=== PATIENT | female | born 1990 | race Caucasian/White ===

== ENCOUNTER 2017-02-04 23:18 | Emergency (ER) | payer BC ==
[~2017-02-04 23:18] MED LIST: Magnesium Citrate Solution 296 ML Bottle PO ONE
[2017-02-04 23:34] VITALS: BP 124/61
--- NOTE | 2017-02-04 23:35 | EDM.PDOC ---
{null, ED HPI GENERAL MEDICAL PROBLEM - General Chief Complaint: Abdominal Pain Stated Complaint: ABD PAINS, [id number] Time Seen by Provider: 02/04/17 23:33 Source of Information: Reports: Patient History Limitations: Reports: No Limitations - History of Present Illness INITIAL COMMENTS - FREE TEXT/NARRATIVE: onset abd pain tonight, nausea no V/D. was eating liquorice prior. don't know last BM. Left Lower Abdominal Pain Score (Numeric/FACES): 8 - Related Data Allergies Allergy/AdvReac Type Severity Reaction Status Date / Time amoxicillin [Amoxicillin] Allergy Severe Difficulty Verified 09/17/16 19:03 Breathing azithromycin [From Zithromax] Allergy Intermediate Vomiting Verified 09/17/16 19 :03 Home Meds: Home Meds Ibuprofen [Motrin] 600 mg PO ASDIRECTED 10/18/14 [History] Sertraline [Zoloft] 100 mg PO DAILY 10/18/14 [History] Past Medical History - Past Health History Medical/Surgical History: Denies Medical/Surgical History HEENT History: Reports: Otitis Media Respiratory History: Reports: Asthma Genitourinary History: Reports: UTI, Recurrent Psychiatric History: Reports: Depression - Infectious Disease History Infectious Disease History: Reports: Chicken Pox - Past Surgical History HEENT Surgical History: Reports: Adenoidectomy, Myringotomy w Tube(s), Tonsillectomy Respiratory Surgical History: Reports: Other (See Below) Social & Family History - Family History Family Medical History: Noncontributory - Tobacco Use Smoking Status *Q: Never Smoker Second Hand Smoke Exposure: No - Caffeine Use Caffeine Use: Reports: Other Other Caffeine Use: orange juice - Alcohol Use Days Per Week of Alcohol Use: 0 - Recreational Drug Use Recreational Drug Use: No ED ROS GENERAL - Review of Systems Review Of Systems: ROS reveals no pertinent complaints other than HPI. ED EXAM, GI/ABD - Physical Exam Exam: See Below Exam Limited By: No Limitations General Appearance: Alert, WD/WN, Mild Distress, Other (discomfort) Ears: Hearing Grossly Normal Throat/Mouth: Normal Voice, No Airway Compromise Head: Atraumatic Neck: Non-Tender, Full Range of Motion Respiratory/Chest: No Respiratory Distress Cardiovascular: Regular Rate, Rhythm GI/Abdominal: Soft, Hyperactive Bowel Sounds, Tenderness, Other (periumb). No: Distention, Guarding, Rebound, Rigidity Neurological: Alert, Normal Cognition, Normal Gait, No Motor/Sensory Deficits Psychiatric: Normal Affect, Normal Mood Skin Exam: Warm, Dry Lymphatic: No Adenopathy Course - Vital Signs Last Recorded V/S: Last Vital Signs Temp 36.6 C 02/04/17 23:20 Pulse 55 L 02/04/17 23:20 Resp 16 02/04/17 23:20 BP 124/61 02/04/17 23:20 Pulse Ox 100 02/04/17 23:20 - Orders/Labs/Meds Labs: Laboratory Tests 02/04/17 02/04/17 02/04/17 Range/Units 23:32 23:32 23:40 WBC 8.7 (5.0-10.0) 10^3/uL RBC 4.57 (4.2-5.4) 10^6/uL Hgb 13.8 (12.0-16.0) g/dL Hct 39.6 (37.0-47.0) % MCV 86.7 (80-100) fL MCH 30.2 (27.0-34.0) pg MCHC 34.8 (33.0-35.0) g/dL Plt Count 296 (150-450) 10^3/uL Neut % (Auto) 46.9 (42.2-75.2) % Lymph % (Auto) 42.6 (20.5-50.1) % [place] % (Auto) 9.2 H (2-8) % Eos % (Auto) 1.2 (1.0-3.0) % Baso % (Auto) 0.1 (0.0-1.0) % Sodium (135-145) mmol/L Potassium (3.6-5.0) mmol/L Chloride (101-111) mmol/L Carbon Dioxide (21.0-31.0) mmol/L Anion Gap BUN (7-18) mg/dL Creatinine (0.6-1.3) mg/dL Est Cr Clr Drug Dosing mL/min Estimated GFR (MDRD) BUN/Creatinine Ratio Glucose (74-105) mg/dL Calcium (8.4-10.2) mg/dl Total Bilirubin (0.2-1.0) mg/dL AST (10-42) IU/L ALT (10-60) IU/L Alkaline Phosphatase (42-121) IU/L Total Protein (6.7-8.2) g/dl Albumin (3.2-5.5) g/dl Globulin Albumin/Globulin Ratio Urine Color Yellow (YELLOW) Urine Appearance Slightly cloudy (CLEAR) Urine pH 5.5 (5.0-9.0) Ur Specific [place] 1.020 (1.005-1.030) Urine Protein Negative (NEGATIVE) Urine Glucose (UA) Negative (NEGATIVE) Urine Ketones Negative (NEGATIVE) Urine Occult Blood Negative (NEGATIVE) Urine Nitrite Negative (NEGATIVE) Urine Bilirubin Negative (NEGATIVE) Urine Urobilinogen 0.2 (0.2-1.0) mg/dL Ur Leukocyte Esterase Small H (NEGATIVE) Urine RBC 0-5 /HPF Urine WBC 5-10 H (0-5/HPF) /HPF Ur Epithelial Cells Many H /HPF Urine Bacteria Few (0-FEW/HPF) /HPF Urine HCG, Qual Negative 02/04/17 Range/Units 23:40 WBC (5.0-10.0) 10^3/uL RBC (4.2-5.4) 10^6/uL Hgb (12.0-16.0) g/dL Hct (37.0-47.0) % MCV (80-100) fL MCH (27.0-34.0) pg MCHC (33.0-35.0) g/dL Plt Count (150-450) 10^3/uL Neut % (Auto) (42.2-75.2) % Lymph % (Auto) (20.5-50.1) % [facility] % (Auto) (2-8) % Eos % (Auto) (1.0-3.0) % Baso % (Auto) (0.0-1.0) % Sodium 139 (135-145) mmol/L Potassium 3.6 (3.6-5.0) mmol/L Chloride 105 (101-111) mmol/L Carbon Dioxide 27.0 (21.0-31.0) mmol/L Anion Gap 10.6 BUN 13 (7-18) mg/dL Creatinine 0.7 (0.6-1.3) mg/dL Est Cr Clr Drug Dosing 97.17 mL/min Estimated GFR (MDRD) > 60 BUN/Creatinine Ratio 18.57 Glucose 112 H (74-105) mg/dL Calcium 9.3 (8.4-10.2) mg/dl Total Bilirubin 0.5 (0.2-1.0) mg/dL AST 18 (10-42) IU/L ALT 21 (10-60) IU/L Alkaline Phosphatase 52 (42-121) IU/L Total Protein 6.8 (6.7-8.2) g/dl Albumin 4.6 (3.2-5.5) g/dl Globulin 2.2 Albumin/Globulin Ratio 2.09 Urine Color (YELLOW) Urine Appearance (CLEAR) Urine pH (5.0-9.0) Ur Specific [place] (1.005-1.030) Urine Protein (NEGATIVE) Urine Glucose (UA) (NEGATIVE) Urine Ketones (NEGATIVE) Urine Occult Blood (NEGATIVE) Urine Nitrite (NEGATIVE) Urine Bilirubin (NEGATIVE) Urine Urobilinogen (0.2-1.0) mg/dL Ur Leukocyte Esterase (NEGATIVE) Urine RBC /HPF Urine WBC (0-5/HPF) /HPF Ur Epithelial Cells /HPF Urine Bacteria (0-FEW/HPF) /HPF Urine HCG, Qual Meds: Medications Discontinued Medications Generic Name Dose Route Start Last Admin Trade Name Michaelq PRN Reason Stop Dose Admin Dicyclomine HCl 20 mg 02/05/17 00:27 Bentyl IM 02/05/17 00:28 ONETIME ONE - Re-Assessments/Exams Free Text/Narrative Re-Assessment/Exam: 02/05/17 00:28 x-rays discussed with Pt. Departure - Departure Time of Disposition: 00:29 Disposition: Home, Self-Care 01 Condition: good Clinical Impression: Colicky periumbilical abdominal pain - Discharge Information Instructions: Abdominal Pain, Adult, [id number] Forms: ED Department Discharge Additional Instructions: 1) avoid solid foods next 24 hours 2) have jello, baby foods 3) follow up at clinic or recheck as needed rx togo: [facility] }
[2017-02-05 00:03] LABS: CHLORIDE,CL 105 mmol/L (101-111); SODIUM,NA 139 mmol/L (135-145)
[2017-02-05] MEDS ORDERED: Dicyclomine 20 MG/2 ML SDV IM ONE (00:27)
[2017-02-05] MEDS ORDERED: Magnesium Citrate Solution 296 ML Bottle ONE (00:33)
== END 2017-02-05 00:38 | disposition home or self-care (01) ==
LOC: DL.ED 23:18
DX: R10.33 Periumbilical pain (principal); J45.909 Unspecified asthma, uncomplicated; F32.9 Major depressive disorder, single episode, unspecified; Z88.1 Allergy status to other antibiotic agents; Z87.440 Personal history of urinary (tract) infections; Z79.899 Other long term (current) drug therapy; Z98.890 Other specified postprocedural states; Z96.22 Myringotomy tube(s) status
CPT/HCPCS: 36415; 74000; 80053; 81001; 81025; 85025; 96372; 99284; A9270; J0500

== ENCOUNTER 2017-05-08 20:48 | Emergency (ER) | payer BC ==
[2017-05-08 21:18] VITALS: BP 127/82
--- NOTE | 2017-05-08 22:21 | EDM.PDOC ---
ED HPI GENERAL MEDICAL PROBLEM - General Chief Complaint: Bite:Animal, Insect Stated Complaint: STUNG BY HORNET Time Seen by Provider: 05/08/17 22:10 Source of Information: Reports: Patient History Limitations: Reports: No Limitations - History of Present Illness INITIAL COMMENTS - FREE TEXT/NARRATIVE: pain and ingling to tip of right finger since stung by hornet on Sunday. Onset: Other (2 days ago) Location: Reports: Upper Extremity, Right Quality: Reports: Throbbing Associated Symptoms: Reports: No Other Symptoms. Denies: Cough, Fever/Chills, Nausea/Vomiting, Shortness of Breath, Weakness Right 3-Middle finger Pain Score (Numeric/FACES): 7 - Related Data Allergies Allergy/AdvReac Type Severity Reaction Status Date / Time amoxicillin [Amoxicillin] Allergy Severe Difficulty Verified 05/08/17 21:18 Breathing azithromycin [From Zithromax] Allergy Intermediate Vomiting Verified 05/08/17 21 :18 Home Meds: Home Meds Ibuprofen [Motrin] 600 mg PO ASDIRECTED 10/18/14 [History] Sertraline [Zoloft] 100 mg PO DAILY 10/18/14 [History] Past Medical History - Past Health History Medical/Surgical History: Denies Medical/Surgical History HEENT History: Reports: Otitis Media Respiratory History: Reports: Asthma Genitourinary History: Reports: UTI, Recurrent Psychiatric History: Reports: Depression - Infectious Disease History Infectious Disease History: Reports: Chicken Pox - Past Surgical History HEENT Surgical History: Reports: Adenoidectomy, Myringotomy w Tube(s), Tonsillectomy Respiratory Surgical History: Reports: Other (See Below) Other Musculoskeletal Surgeries/Procedures:: 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 Social & Family History - Family History Family Medical History: Noncontributory - Tobacco Use Smoking Status *Q: Never Smoker Second Hand Smoke Exposure: No - Caffeine Use Caffeine Use: Reports: Soda Other Caffeine Use: orange juice - Alcohol Use Days Per Week of Alcohol Use: 0 - Recreational Drug Use Recreational Drug Use: No ED ROS GENERAL - Review of Systems Review Of Systems: ROS reveals no pertinent complaints other than HPI. ED EXAM, ANIMAL BITE - Physical Exam Exam: See Below Exam Limited By: No Limitations General Appearance: Alert Ears: Normal External Exam Nose: Normal Inspection Throat/Mouth: Normal Inspection, Normal Lips Head: Atraumatic, Normocephalic Respiratory/Chest: No Respiratory Distress Cardiovascular: Normal Peripheral Pulses, Regular Rate, Rhythm Extremities: Normal Inspection, Normal Range of Motion Neurological: Alert, Oriented Psychiatric: Normal Affect Skin Exam: Other (mild erythema to tip of right 3rd finger, punture site without stinger visible medial edge. good capillary refill. ). No: Normal Color Course - Vital Signs Last Recorded V/S: Last Vital Signs Temp 98.2 F 05/08/17 21:08 Pulse 73 05/08/17 21:08 Resp 16 05/08/17 21:08 BP 127/82 05/08/17 21:08 Pulse Ox 100 05/08/17 21:08 Departure - Departure Time of Disposition: 22:17 Disposition: Home, Self-Care 01 Condition: Good Clinical Impression: Sting, hornet Qualifiers: Encounter type: initial encounter Injury intent: accidental or unintentional Qualified Code(s): T63.451A - Toxic effect of venom of hornets, accidental ( unintentional), initial encounter - Discharge Information Instructions: Insect Bite, [id number] Forms: ED Department Discharge Additional Instructions: tylenol every 4-6 hours as needed for discomfort warm soack with antibacterial soap to finger 4 times daily for 15 minutes follow up if not improving
== END 2017-05-08 22:21 | disposition home or self-care (01) ==
LOC: DL.ED 20:48
DX: T63.451A Toxic effect of venom of hornets, accidental (unintentional), initial encounter (principal); J45.909 Unspecified asthma, uncomplicated; F32.9 Major depressive disorder, single episode, unspecified; Z96.22 Myringotomy tube(s) status; Z88.1 Allergy status to other antibiotic agents
CPT/HCPCS: 99281

== ENCOUNTER 2017-05-21 20:49 | Emergency (ER) | payer BC ==
[2017-05-21 21:20] VITALS: BP 121/69
--- NOTE | 2017-05-21 21:50 | EDM.PDOC ---
ED HPI GENERAL MEDICAL PROBLEM - General Chief Complaint: Abdominal Pain Stated Complaint: 6 WEEKS , CRAMPING Time Seen by Provider: 05/21/17 20:55 Source of Information: Reports: Patient History Limitations: Reports: No Limitations - History of Present Illness INITIAL COMMENTS - FREE TEXT/NARRATIVE: Reports recent UTI and treated with Macrobid. Continued symptoms of pain with urination, cramping. Reports 6 weeks . No spotting or discharge. Cramping since onset of urinary symptoms and was seen in clinic. Has not had OB visit yet. . No fevers or chills. Duration: Day(s): Lower Abdomen Pain Score (Numeric/FACES): 8 - Related Data Allergies Allergy/AdvReac Type Severity Reaction Status Date / Time amoxicillin [Amoxicillin] Allergy Severe Difficulty Verified 05/21/17 21:02 Breathing azithromycin [From Zithromax] Allergy Intermediate Vomiting Verified 05/21/17 21 :02 Penicillins Allergy Vomiting Verified 05/21/17 21:03 Home Meds: Home Meds Cetirizine HCl [Zyrtec] 10 mg PO DAILY 05/21/17 [History] Past Medical History - Past Health History Medical/Surgical History: Denies Medical/Surgical History HEENT History: Reports: Otitis Media Cardiovascular History: Reports: None Respiratory History: Reports: Asthma Gastrointestinal History: Reports: None Genitourinary History: Reports: UTI, Recurrent 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: Musculoskeletal History: Reports: Fracture Neurological History: Reports: None Psychiatric History: Reports: Depression Endocrine/Metabolic History: Reports: None Hematologic History: Reports: None Immunologic History: Reports: None Oncologic (Cancer) History: Reports: None Dermatologic History: Reports: None - Infectious Disease History Infectious Disease History: Reports: Chicken Pox - Past Surgical History HEENT Surgical History: Reports: Adenoidectomy, Myringotomy w Tube(s), Tonsillectomy Cardiovascular Surgical History: Reports: None Respiratory Surgical History: Reports: None GI Surgical History: Reports: None Female Surgical History: Reports: None Endocrine Surgical History: Reports: None Neurological Surgical History: Reports: None Musculoskeletal Surgical History: Reports: Other (See Below) Other Musculoskeletal Surgeries/Procedures:: 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 Dermatological Surgical History: Reports: None Social & Family History - Family History Family Medical History: Noncontributory - Tobacco Use Smoking Status *Q: Never Smoker Second Hand Smoke Exposure: No - Caffeine Use Caffeine Use: Reports: Soda Other Caffeine Use: orange juice - Alcohol Use Days Per Week of Alcohol Use: 0 - Recreational Drug Use Recreational Drug Use: No ED ROS GENERAL - Review of Systems Review Of Systems: ROS reveals no pertinent complaints other than HPI. ED EXAM, RENAL/ - Physical Exam Exam: See Below Exam Limited By: No Limitations General Appearance: Alert, No Apparent Distress Eye Exam: Bilateral Eye: EOMI Ears: Normal External Exam Nose: Normal Inspection Throat/Mouth: Normal Inspection Head: Atraumatic, Normocephalic Neck: Normal Inspection Respiratory/Chest: No Respiratory Distress, Lungs Clear, Normal Breath Sounds Cardiovascular: Normal Peripheral Pulses, Regular Rate, Rhythm GI/Abdominal: Normal Bowel Sounds, Soft, Tender (mild suprpubic) (Female) Exam: Deferred Back Exam: Full Range of Motion Extremities: Normal Inspection Neurological: Alert, Oriented, Normal Cognition Psychiatric: Normal Affect, Normal Mood Skin Exam: Warm, Dry, Intact, Normal Color Course - Vital Signs Last Recorded V/S: Last Vital Signs Temp 97.4 F 05/21/17 20:50 Pulse 78 05/21/17 20:50 Resp 26 H 05/21/17 20:50 BP 121/69 05/21/17 20:50 Pulse Ox 100 05/21/17 20:50 - Orders/Labs/Meds Orders: Active Orders 24 hr Category Date Time Status CHLAMYDIA TRACHOMATIS/GC AMPLF DAILY Lab 05/21/17 20:53 Received Labs: Laboratory Tests 05/21/17 Range/Units 20:53 Urine Color Yellow (YELLOW) Urine Appearance Slightly cloudy (CLEAR) Urine pH 6.0 (5.0-9.0) Ur Specific [place] 1.015 (1.005-1.030) Urine Protein Negative (NEGATIVE) Urine Glucose (UA) Negative (NEGATIVE) Urine Ketones Negative (NEGATIVE) Urine Occult Blood Negative (NEGATIVE) Urine Nitrite Negative (NEGATIVE) Urine Bilirubin Negative (NEGATIVE) Urine Urobilinogen 0.2 (0.2-1.0) mg/dL Ur Leukocyte Esterase Trace H (NEGATIVE) Urine RBC 0-5 /HPF Urine WBC 5-10 H (0-5/HPF) /HPF Ur Epithelial Cells Moderate H /HPF Urine Bacteria Few (0-FEW/HPF) /HPF Meds: Medications Discontinued Medications Generic Name Dose Route Start Last Admin Trade Name Rafael PRN Reason Stop Dose Admin Cephalexin 500 mg 05/21/17 21:51 05/21/17 22:00 Keflex PO 05/21/17 21:52 500 mg ONETIME ONE Administration Departure - Departure Time of Disposition: 21:43 Disposition: Home, Self-Care 01 Condition: Good Clinical Impression: UTI (urinary tract infection) during Qualifiers: Trimester: first trimester Qualified Code(s): O23.41 - Unspecified infection of urinary tract in , first trimester - Discharge Information Instructions: Urinary Tract Infection, Adult Referrals: Orion Ceja NP [Primary Care Provider] - Forms: ED Department Discharge Additional Instructions: keflex 500mg one twice daily for one week follow up with [facility] this week Urine culture pending light activity increase fluids - My Orders Last 24 Hours: My Active Orders 05/21/17 20:53 CHLAMYDIA TRACHOMATIS/GC AMPLF DAILY - Assessment/Plan Last 24 Hours: My Active Orders 05/21/17 20:53 CHLAMYDIA TRACHOMATIS/GC AMPLF DAILY
[2017-05-21] MEDS ORDERED: Cephalexin 500 MG Cap PO ONE (21:51)
== END 2017-05-21 22:05 | disposition home or self-care (01) ==
LOC: DL.ED 20:49
DX: O23.41 Unspecified infection of urinary tract in pregnancy, first trimester (principal); O99.511 Diseases of the respiratory system complicating pregnancy, first trimester; J45.909 Unspecified asthma, uncomplicated; O99.341 Other mental disorders complicating pregnancy, first trimester; F32.9 Major depressive disorder, single episode, unspecified; Z96.22 Myringotomy tube(s) status; Z98.890 Other specified postprocedural states; Z79.899 Other long term (current) drug therapy; Z88.0 Allergy status to penicillin; Z88.1 Allergy status to other antibiotic agents; Z3A.01 Less than 8 weeks gestation of pregnancy
CPT/HCPCS: 81001; 87491; 87591; 99284; A9270

== ENCOUNTER 2017-06-16 09:33 | Emergency (ER) | payer BC ==
[2017-06-16 09:52] VITALS: BP 121/71
--- NOTE | 2017-06-16 10:16 | EDM.PDOC ---
ED HPI GENERAL MEDICAL PROBLEM - General Chief Complaint: Genitourinary Problem Stated Complaint: UTI 10WEEKS [id number] Time Seen by Provider: 06/16/17 10:10 Source of Information: Reports: Patient History Limitations: Reports: No Limitations - History of Present Illness INITIAL COMMENTS - FREE TEXT/NARRATIVE: Patient comes emergency department today with complaints of painful urination and urinary frequency. She just finished a seven-day course of Keflex 1 tablet every 6 hours for 7 days. Previous to that she had been on Keflex and also Macrobid. She denies any fever or chills. She denies any chest pain shortness of breath. She denies any abdominal pain or cramping over the when she urinates. She denies any flank pain. She denies any nausea or vomiting. She is currently 10 weeks just station and is to see her OB doctor on Sunday. She did finish her entire course of Keflex 4 times a day for 7 days. Left Lower Abdomen Pain Score (Numeric/FACES): 7 - Related Data Allergies Allergy/AdvReac Type Severity Reaction Status Date / Time amoxicillin [Amoxicillin] Allergy Severe Difficulty Verified 05/21/17 21:02 Breathing azithromycin [From Zithromax] Allergy Intermediate Vomiting Verified 05/21/17 21 :02 Penicillins Allergy Vomiting Verified 05/21/17 21:03 Home Meds: Home Meds Cetirizine HCl [Zyrtec] 10 mg PO ASDIRECTED 05/21/17 [History] Doxylamine Succinate [Unisom Sleep Aid] 25 mg PO BEDTIME PRN 06/16/17 [History] Vit37/Iron/Folic Acid [[place]] 1 tab PO DAILY 06/16/17 [History] Vit B 6 1 tab PO DAILY 06/16/17 [History] Past Medical History - Past Health History Medical/Surgical History: Denies Medical/Surgical History HEENT History: Reports: Otitis Media Cardiovascular History: Reports: None Respiratory History: Reports: Asthma Gastrointestinal History: Reports: None Genitourinary History: Reports: UTI, Recurrent 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: Musculoskeletal History: Reports: Fracture Neurological History: Reports: None Psychiatric History: Reports: Depression Endocrine/Metabolic History: Reports: None Hematologic History: Reports: None Immunologic History: Reports: None Oncologic (Cancer) History: Reports: None Dermatologic History: Reports: None - Infectious Disease History Infectious Disease History: Reports: Chicken Pox - Past Surgical History Head Surgeries/Procedures: Reports: None HEENT Surgical History: Reports: Adenoidectomy, Myringotomy w Tube(s), Tonsillectomy Cardiovascular Surgical History: Reports: None Respiratory Surgical History: Reports: None GI Surgical History: Reports: None Female Surgical History: Reports: None Endocrine Surgical History: Reports: None Neurological Surgical History: Reports: None Musculoskeletal Surgical History: Reports: Other (See Below) Other Musculoskeletal Surgeries/Procedures:: 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 Dermatological Surgical History: Reports: None Social & Family History - Family History Family Medical History: Noncontributory - Tobacco Use Smoking Status *Q: Never Smoker Second Hand Smoke Exposure: No - Caffeine Use Caffeine Use: Reports: Soda Other Caffeine Use: orange juice - Alcohol Use Days Per Week of Alcohol Use: 0 - Recreational Drug Use Recreational Drug Use: No ED ROS GENERAL - Review of Systems Review Of Systems: ROS reveals no pertinent complaints other than HPI. ED EXAM, RENAL/ - Physical Exam Exam: See Below Exam Limited By: No Limitations General Appearance: Alert, WD/WN, No Apparent Distress Head: Atraumatic, Normocephalic Neck: Normal Inspection, Supple, Non-Tender Respiratory/Chest: No Respiratory Distress, Lungs Clear, Normal Breath Sounds, No Accessory Muscle Use Cardiovascular: Normal Peripheral Pulses, Regular Rate, Rhythm, No Edema GI/Abdominal: Normal Bowel Sounds, Soft, Non-Tender, No Organomegaly, No Distention (Female) Exam: Deferred, Vaginal Discharge (Bob within fishy smelling discharge.), Other (Exam done with Ana Rosa RN present.). No: Adnexal Mass, Adnexal Tenderness, Cervical Dilatation, Cervical Discharge, Cervical Lesions, Cervix Motion Tenderness, Uterine Tenderness, Vaginal Bleeding, Vaginal Lesions , Vaginal Tears Rectal (Female) Exam: Deferred Back Exam: Normal Inspection, Full Range of Motion. No: CVA Tenderness (L), CVA Tenderness (R) Extremities: Normal Inspection, Normal Range of Motion, Non-Tender, No Pedal Edema, Normal Capillary Refill Neurological: Alert, Oriented, CN II-XII Intact Psychiatric: Normal Affect Skin Exam: Warm, Dry, Intact, Normal Color Lymphatic: No Adenopathy Course - Vital Signs Last Recorded V/S: Last Vital Signs Temp 36.3 C 06/16/17 09:47 Pulse 71 06/16/17 09:47 Resp 16 06/16/17 09:47 BP 121/71 06/16/17 09:47 Pulse Ox 100 06/16/17 09:47 - Orders/Labs/Meds Labs: Laboratory Tests 06/16/17 Range/Units 09:45 Urine Color Yellow (YELLOW) Urine Appearance Cloudy (CLEAR) Urine pH 7.0 (5.0-9.0) Ur Specific [place] 1.020 (1.005-1.030) Urine Protein Negative (NEGATIVE) Urine Glucose (UA) Negative (NEGATIVE) Urine Ketones Negative (NEGATIVE) Urine Occult Blood Negative (NEGATIVE) Urine Nitrite Negative (NEGATIVE) Urine Bilirubin Negative (NEGATIVE) Urine Urobilinogen 1.0 (0.2-1.0) mg/dL Ur Leukocyte Esterase Trace H (NEGATIVE) Urine RBC 0-5 /HPF Urine WBC 0-5 (0-5/HPF) /HPF Ur Epithelial Cells Moderate H /HPF Urine Bacteria Few (0-FEW/HPF) /HPF Urine Mucus Few H /LPF Microbiology 06/16/17 11:29 Wet Prep - Final Vagina Microbiology 06/16/17 11:29 Vagina Wet Prep - Final Many clue cells. No yeast or trichomoniasis. - Re-Assessments/Exams Free Text/Narrative Re-Assessment/Exam: 06/16/17 11:11 Review of her urine which is rather unremarkable today with a trace amount of leukocyte esterase. Normal amount of RBCs and WBCs. We were able to access her [facility] chart which had a negative urine culture from the last visit when she was started on Keflex. She does also have a negative chlamydia and gonorrhea screen previously in the emergency department here. I wonder if she does not have some type of vaginal infection to include G strep bacterial vaginosis. She consented to a pelvic exam with Ana Rosa RN in the room. 06/16/17 12:06 Wet prep positive for clue cells. We'll treat with clindamycin she does have a follow-up with OB on Sunday. She was comfortable with this plan and her questions are answered. Departure - Departure Time of Disposition: 11:59 Disposition: Home, Self-Care 01 Clinical Impression: Bacterial vaginal infection - Discharge Information Instructions: Bacterial Vaginosis, [id number] Forms: ED Department Discharge Additional Instructions: Tylenol as needed for pain. Clindamycin 300mg 1 tab twice a day for 7 days. Increase oral fluids over the next couple of days. Follow-up with your OB provider on Sunday as planned. Return the emergency department if new or worsening symptoms. - Assessment/Plan Assessment:: Bacterial vaginosis in a patient. Plan: Tylenol as needed for pain. Clindamycin 300mg 1 tab twice a day for 7 days. Increase oral fluids over the next couple of days. Follow-up with your OB provider on Sunday as planned. Return the emergency department if new or worsening symptoms.
== END 2017-06-16 12:08 | disposition home or self-care (01) ==
LOC: DL.ED 09:33
DX: O23.591 Infection of other part of genital tract in pregnancy, first trimester (principal); N76.0 Acute vaginitis; B96.89 Other specified bacterial agents as the cause of diseases classified elsewhere; O99.511 Diseases of the respiratory system complicating pregnancy, first trimester; J45.909 Unspecified asthma, uncomplicated; O99.341 Other mental disorders complicating pregnancy, first trimester; F32.9 Major depressive disorder, single episode, unspecified; Z96.22 Myringotomy tube(s) status; Z98.890 Other specified postprocedural states; Z88.0 Allergy status to penicillin; Z88.1 Allergy status to other antibiotic agents; Z3A.10 10 weeks gestation of pregnancy
CPT/HCPCS: 81001; 87210; 99284

== ENCOUNTER 2017-11-23 22:21 | Observation (INO) | payer BC, MEDICAID ==
[2017-11-23] MEDS ORDERED: Acetaminophen 500 MG Tab PO ONE (22:55)
[2017-11-24] MEDS ORDERED: Magnesium Sulfate/Water 4 GM in Premix Bag 1 BAG IV ONE (01:39)
[2017-11-24] MEDS ORDERED: Calcium Gluconate 10% 1 GM/10 ML SDV IV PRN (01:39)
[2017-11-24] MEDS ORDERED: Lactated Ringers 1,000 ML IV SCH (01:45)
[2017-11-24] MEDS ORDERED: Magnesium Sulfate/Water 20 GM/500 ML BAG IV SCH (01:45)
--- NOTE | 2017-11-24 02:15 | PCM.LDHP ---
L&D History of Present Illness - General Date of Service: 11/24/17 (33 2/7 week intrauterine ) Admit Problem/Dx: 27 y.o Gravia 1 Para 0 female who reports to [facility] labor and delivery at 33 2/7 weeks gestation with headache and history of preeclampsia without severe features being monitored at home until headache 7/10 in pain scale started and has been bothering her all day long. No history of headaches in the past. Blood pressures noted to be in 140-170's/90's -100's. Reflexes brisk with some clonus right foot. Her 24 hour urine done on 11/22/2017 was 891 mg/24hr. No other issues in the . Source of Information: Patient History Limitations: Reports: No Limitations - History of Present Illness Location, : Reports: Other (Headache) Severity: Moderate Pain Score: 7 Improves with: Reports: None Worsens with: Reports: Movement - Related Data Allergies/Adverse Reactions: Allergies Allergy/AdvReac Type Severity Reaction Status Date / Time amoxicillin [Amoxicillin] Allergy Severe Difficulty Verified 11/23/17 22:45 Breathing azithromycin [From Zithromax] Allergy Intermediate Vomiting Verified 11/23/17 22 :45 Penicillins Allergy Vomiting Verified 11/23/17 22:45 Home Medications: Home Meds Vit37/Iron/Folic Acid [Prenata] 1 tab PO DAILY 06/16/17 [History] Past Medical History - Past Health History Medical/Surgical History: Denies Medical/Surgical History HEENT History: Reports: Otitis Media Cardiovascular History: Reports: Other (See Below) Other Cardiovascular History: preeclampsia Respiratory History: Reports: Asthma Gastrointestinal History: Reports: None Genitourinary History: Reports: UTI, Recurrent 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: Reports: , Other (See Below) Other OB/BYN History: BV Musculoskeletal History: Reports: Fracture Neurological History: Reports: None Psychiatric History: Reports: Depression Endocrine/Metabolic History: Reports: None Hematologic History: Reports: None Immunologic History: Reports: None Oncologic (Cancer) History: Reports: None Dermatologic History: Reports: None - Infectious Disease History Infectious Disease History: Reports: None - Past Surgical History Head Surgeries/Procedures: Reports: None HEENT Surgical History: Reports: Adenoidectomy, Myringotomy w Tube(s), Tonsillectomy Cardiovascular Surgical History: Reports: None Respiratory Surgical History: Reports: None GI Surgical History: Reports: None Female Surgical History: Reports: None Endocrine Surgical History: Reports: None Neurological Surgical History: Reports: None Musculoskeletal Surgical History: Reports: Other (See Below) Other Musculoskeletal Surgeries/Procedures:: 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 Dermatological Surgical History: Reports: None Social & Family History - Family History Family Medical History: Noncontributory - Tobacco Use Smoking Status *Q: Never Smoker Second Hand Smoke Exposure: No - Caffeine Use Caffeine Use: Reports: Soda Other Caffeine Use: orange juice - Alcohol Use Days Per Week of Alcohol Use: 0 - Recreational Drug Use Recreational Drug Use: No H&P Review of Systems - Review of Systems: Review Of Systems: See Below General: Reports: Malaise HEENT: Reports: Headaches Pulmonary: Reports: No Symptoms Cardiovascular: Reports: No Symptoms Gastrointestinal: Reports: No Symptoms Genitourinary: Reports: No Symptoms Musculoskeletal: Reports: No Symptoms Skin: Reports: Other (Edema in hands and feet/legs) Psychiatric: Reports: No Symptoms Neurological: Reports: Headache Hematologic/Lymphatic: Reports: No Symptoms Immunologic: Reports: No Symptoms L&D Exam - Exam Exam: See Below - Vital Signs Vital Signs: Last Vital Signs Temp 99 F 11/23/17 23:18 Pulse Resp BP Pulse Ox Weight: 193 lb - OB Specific Fundal Height In cm: 33 Movement: Active Heart Tones: Present Heart Tones per Min: 140 Heart Rate (FHR) Variability: Moderate (6-25 bmp) Presentation: Vertex - Exam Quality Assessment: Urinary Catheter General: Alert, Oriented, Cooperative HEENT: Conjunctiva Clear, EOMI, Mucosa Moist & [place], Pupils Equal, Pupils Reactive Neck: Supple, Full Range of Motion Lungs: Clear to Auscultation, Normal Respiratory Effort Cardiovascular: Regular Rate, Regular Rhythm GI/Abdominal Exam: Normal Bowel Sounds, Soft, Non-Tender, No Organomegaly Rectal Exam: Deferred Genitourinary: Deferred Back Exam: Normal Inspection, Full Range of Motion Extremities: Normal Inspection, Normal Range of Motion, Non-Tender, Normal Capillary Refill, Pedal Edema (2+ edema) Skin: Warm, Dry, Intact Neurological: Reflexes Equal Bilateral, Hyperreflexia DTR: 3+: Bicep (L), Bicep (R), Tricep (L), Tricep (R), Patella (L), Patella (R) , Achilles (L), Achilles (R) (2 beats of Clonus) Psychiatric: Alert, Normal Affect, Normal Mood - Patient Data Lab Results Last 24 hrs: 11/21/2017 WBC- 12.2 HGB- 12.5 HCT- 35.9 PLT- 217 Na+- 139 K+- 3.6 BUN- 11 Cr- 0.7 URIC ACID- 5.7 LDH- 176 AST- 26 ALT- 16 11/22/2017 24 Urine protein- 891 mg/24hr - Problem List (1) Hypertension affecting in third trimester SNOMED Code(s): 463767851 ICD Code: O16.3 - UNSPECIFIED MATERNAL HYPERTENSION, THIRD TRIMESTER Status : Acute Current Visit: Yes Problem List Initiated/Reviewed/Updated: Yes Orders Last 24hrs: Active Orders 24 hr Category Date Time Status Patient Status [ADT] Routine ADT 11/24/17 01:39 Ordered Bedrest [RC] ASDIRECTED Care 11/24/17 01:50 Ordered Equipment to Bedside [RC] PRN Care 11/24/17 01:42 Ordered Duran Catheter Insertion [Insert Urinary Catheter] [OM. Care 11/24/17 02:00 Ordered PC] Q24H Intake and Output [RC] Q1H Care 11/24/17 01:50 Ordered Notify Provider Status Change [RC] ASDIRECTED Care 11/24/17 01:49 Ordered Notify Provider Vital Signs OB [RC] ASDIRECTED Care 11/24/17 01:39 Ordered Oxygen Therapy [RC] PRN Care 11/24/17 01:39 Ordered Ready for Discharge [RC] PER UNIT ROUTINE Care 11/24/17 02:06 Ordered Urinary Catheter Assessment [RC] ASDIRECTED Care 11/24/17 01:54 Ordered Vital Signs [RC] ASDIRECTED Care 11/24/17 01:39 Ordered Calcium Gluconate Med 11/24/17 01:39 Ordered 1 gm IV ASDIRECTED PRN Lactated Ringers [Ringers, Lactated] 1,000 ml Med 11/24/17 01:45 Ordered IV ASDIRECTED Magnesium Sulfate/Water [Magnesium Sulfate 20 GM in Med 11/24/17 01:45 Ordered Water 500 ML] 500 ml IV ASDIRECTED Blood Pressure [OM.PC] Per Unit Routine Oth 11/24/17 01:39 Ordered Blood Pressure [OM.PC] Routine Oth 11/23/17 22:55 Ordered Deep Tendon Reflexes [WOMSER] Per Unit Routine Oth 11/24/17 01:39 Ordered Medication Administration Instruction [OM.PC] Per Unit Oth 11/24/17 01:48 Ordered Routine Medication Orders Calcium Gluconate (Calcium Gluconate) 1 gm IV ASDIRECTED PRN PRN Reason: respiratory distress Lactated Ringer's (Ringers, Lactated) 1,000 mls @ 75 mls/hr IV ASDIRECTED ADAN Magnesium Sulfate (Magnesium Sulfate 20 Gm In Water 500 Ml) 20 gm in 500 mls @ 50 mls/hr IV ASDIRECTED ADAN Assessment/Plan Comment:: ASSESSMENT: 27 y.o 1 Para 0 female 33 2/7 week Intauterine Preeclampsia with severe features- Headache Hyperreflexia with some clonus noted Elevated 24 hour urine protein 891 mg/ 24hr PLAN: 1. Transfer to [facility] to Dr. Jack Duque. 2. Magnesium sulfate 4 gram bolus started at 0220 then 2 grams/hr maintainence started. 3. Duran catheter placed. 4. Since labs just obtained her a couple days ago will let [facility] get repeat labs as needed. 5. All questions answered.
[2017-11-24 07:18] VITALS: BP 130/69
== END 2017-11-24 03:30 ==
LOC: DL.OBCHECK 22:21 → DL.OB 11-24 01:39 → DL.OBCHECK 11-24 03:30
PROVIDERS: ADMIT Obstetrics & Gynecology; ATTEND Obstetrics & Gynecology
DX: O16.3 Unspecified maternal hypertension, third trimester (principal); Z3A.33 33 weeks gestation of pregnancy
CPT/HCPCS: 59025; A9270; J3475; J7120; 51702; 96365; 96366; G0378

== ENCOUNTER 2017-12-14 00:32 | Observation (INO) | payer BC ==
[2017-12-14] MEDS ORDERED: Acetaminophen 325 MG Tab PO PRN (01:47)
--- NOTE | 2017-12-14 09:37 | HP ---
PATIENT IDENTIFICATION: Bishnu Villegas is a 27-year-old, G1, P0, intrauterine at 36 and 1/7 weeks, confirmed 21 and 3/7 week' ultrasound, diagnosed with preeclampsia back in November 2017, who presents with a weird sensation in her head. HISTORY OF PRESENT ILLNESS: The patient states on the late evening of 12/13/2017, the patient had a weird sensation in her head described as tingling in nature and not associated with significant pain or headache and no visual changes. She states it has been a weird sensation and continues to occur. To put this in context, she has diagnosis of preeclampsia. She is currently on labetalol 200 mg b.i.d., took her last dose around 9:00 p.m., on 12/13/2017. She has had a 24-hour urine back on 11/25/2017, which was 620 mg in 24 hour period, confirming making a diagnosis of preeclampsia at that time. She is now status post betamethasone x2 as well. Records were called for, reviewed as below, and supplemented by patient history. OB HISTORY: Primip. ANTEPARTUM LABS: ABO blood type A negative. Negative antibody. Rubella nonimmune. RPR/syphilis antibodies is nonreactive. Negative hepatitis B surface antigen. Negative hep C, HIV, GC, and Chlamydia. Wet prep within normal limits. One-hour GTT was 119 in the . GBS was negative in the third trimester. ALLERGIES: Penicillins and amoxicillin is listed with reaction noticed as a baby, but not sure what caused it. Zithromax caused her to throw up. MEDS- PNV daily and labetalol 200 mg BID PAST MEDICAL/PAST SURGICAL HISTORY: 1. Wears glasses with refractive error diagnosed in 2005. 2. Exercise-induced asthma in the past. PFTs normal in June 2007. 3. History of UTI. 4. Nasal fracture. 5. Sprained left shoulder. 6. Depression in September 2013, diagnosed. 7. Blood type A negative. 8. History of chickenpox. 9. Tonsillectomy and adenoidectomy in March 2009. 10.Tympanostomy tube placement questionable when she was a child. FAMILY HISTORY: Sister with asthma. Paternal grandmother with diabetes. Maternal grandmother, paternal uncle, and paternal grandfather with heart attack. High cholesterol and hypertension in father as well as gallbladder disease in father resulting cholecystectomy. Maternal great grandmother had a stroke. Negative family history of sudden , seizures, arrhythmias, or heart disease. SOCIAL HISTORY: Lives in [place]. Presents with male partner. They have been together for over 3 years. She has worked at [employer] in the past. She does not smoke. No alcohol use. No drug use elicited. REVIEW OF SYSTEMS: No contractions, spotting, bleeding, or leaking. No headaches, visual changes, or upper abdominal pain. Otherwise, reviewed and felt to be noncontributory. OBJECTIVE: Vital Signs: Blood pressure 154/82, heart rate 77. The patient feels afebrile. Appearance: Female appears her stated age, acting appropriate, nontoxic appearance. HEENT: Head is atraumatic. EOMs intact. PERRLA. No scleral icterus with glasses on. No obvious otorrhea or rhinorrhea. Mucous members moist. Neck: No obvious tenderness. Lungs: Clear to auscultation bilaterally. No increased work of breathing. Heart: S1 and S2. Regular rate and rhythm. Abdomen: Gravid, Demetris's indeterminate. Nontender and nondistended. Bowel sounds positive. No other organomegaly, pulsatile masses, or obvious hernias. No rebound, rigidity, or guarding. Genitourinary: Normal external female genitalia. Normal position and presentation of the urethra. Vaginal exam reveals her to be closed, 25% effaced, ballotable presentation, suspect vertex. Extremities: 2+ pitting edema to proximal tibia. Deep tendon reflexes 2 to 3/4 bilaterally and symmetric in lower extremities. Psychiatric: Mood and affect are congruent. Judgment and insight are intact. Skin: Without any cyanosis, clubbing, or jaundice. NST was found to be reactive and reassuring with heart tones in the 125 range baseline. Tocometer reveals no evidence contractions. INVESTIGATIONS: White cell count 10.6, hemoglobin 12.2, platelets 344. CMP was done with potassium minimally low at 3.4, albumin low at 2.8. AST and ALT within normal limits. Pending is a urinalysis and protein-creatinine ratio. Of note, 11/25/2017, she had 620 mg of protein in a 24-hour period. ASSESSMENT: 1. Intrauterine at 36 and 1/7 weeks, confirmed with 21 and 3/7 week ultrasound. 2. Preeclampsia without severe features currently. 3. Group B Streptococcus negative. 4. Rh negative. 5. Status post betamethasone. 6. G1, P0. PLAN: The patient will be admitted for observation. We will follow her blood pressures closely as well as other concerning signs and symptoms of preeclampsia severe features. She had one elevated blood pressure 159/94 with a heart rate of 78, and as her blood pressures are increasing, we will continue to follow clinically and closely. We will admit for observation, start a IV with saline lock and if she meets criteria for preeclampsia with severe features, I did discuss with the patient most likely starting mag sulfate, labetalol if she needs to for her blood pressures IV, and transfer to higher level of care due to her prematurity for potential delivery with preeclampsia with severe features. The patient understands and agrees with the above treatment plan. Currently, at time of dictation, the patient is stable and will be admitted. Please see orders for further details. MOD /[id number] ROSA MARIA
--- NOTE | 2017-12-14 10:31 | OBOUT ---
DATE: 12/14/2017 DATE AND TIME OF NST: Date: 12/14/2017 Time: 1:01 to 1:21. REASON FOR NST: 1. Intrauterine 36 and 1/7 weeks, confirmed with 21 and 3/7 week ultrasound. 2. Preeclampsia. 3. Group B streptococcus negative. 4. Rh negative. 5. Status post betamethasone. 6. G1, P0. NST INTERPRETATION: During this time period, heart tone baseline is approximately 125 and therer are at least two 15 x 15 beat per minute accelerations, making this strip reactive. It is also noted to be reassuring. Tocometer reveals no evidence of contraction. Blood pressure 154/82, heart rate 77. ASSESSMENT: 1. Nonstress test: Reactive and reassuring. 2. Tocometer without contractions. PLAN: Please see admit history and physical for further details. [facility] /[id number]
[2017-12-14] MEDS ORDERED: Famotidine 20 MG Tab PO ONE (11:18)
[2017-12-14 14:29] VITALS: BP 126/69
--- NOTE | 2017-12-17 09:11 | DISCH ---
DOS: 12/14/2017 ADMITTING DIAGNOSES: 1. Intrauterine at 36 and 1/7 weeks. 2. Preeclampsia. 3. Group B Streptococcus negative. 4. Rhesus negative. 5. Status post betamethasone. 6. G1, P0. DISCHARGE DIAGNOSES: 1. Intrauterine at 36 and 1/7 weeks. 2. Preeclampsia. 3. Group B Streptococcus negative. 4. Rhesus negative. 5. Status post betamethasone. 6. G1, P0. 7. Blood pressures decreasing after serial evaluations. PROCEDURE PERFORMED: Nonstress test x1. HISTORY OF PRESENT ILLNESS: The patient was seen on the above date with the above diagnoses, admitted under observation status due to increasing blood pressures with one elevated blood pressure in the severe range noted shortly after initial evaluation. She described a weird sensation in her head but no true headache. She did have labs done which did reveal proteinuria which she has had with over 300 mg in the past on 11/25/2017, in a 24-hour period. She was followed closely. Blood pressures never exceeded into the severe range consistently. The patient denied any consistent headache. For severe preeclampsia, HELLP labs were done, all felt to be essentially within normal limits and not concerning. She was placed on semi-continuous monitoring. heart tones were found to be reactive and reassuring. Tocometer revealed occasional contractions but nothing felt much by the patient other than occasional cramping. On the morning of discharge, the patient was feeling better. Repeat labs did not show any significant concerns, and the patient was sent home with precautions as well as reasons to return or go to the emergency room. CONDITION ON DISCHARGE COMPARED TO CONDITION ON ADMISSION: Guarded. DISCHARGE INSTRUCTIONS: Return to the emergency room if she has any headaches, visual changes, upper abdominal pain, or other sensations, as well as followup will be made for tomorrow and on Sunday with NSTs and at least 1 hour monitoring of blood pressures. If she gets in the severe range, may need further evaluation, management, and delivery. This was discussed with the patient in detail. DISCHARGE MEDICATIONS: 1. [id number] Tylenol for discomfort. 2. vitamins. 3. Resume her labetalol 200 mg b.i.d. FOLLOWUP: Follow up tomorrow. We did discuss with her in the interim reasons to return or go to the emergency room. [facility] /[id number]
== END 2017-12-14 12:30 | disposition home or self-care (01) ==
LOC: DL.OBCHECK 00:32 → DL.OB 01:48 → UNDOADMOB 01:50 → DL.OB 01:50
PROVIDERS: ADMIT Family Medicine; ATTEND Family Medicine
DX: O14.93 Unspecified pre-eclampsia, third trimester (principal); O99.513 Diseases of the respiratory system complicating pregnancy, third trimester; J45.990 Exercise induced bronchospasm; O99.343 Other mental disorders complicating pregnancy, third trimester; Z88.0 Allergy status to penicillin; Z88.1 Allergy status to other antibiotic agents; Z3A.36 36 weeks gestation of pregnancy; Z79.899 Other long term (current) drug therapy
CPT/HCPCS: 36415; 82565; 82570; 83615; 84156; 84450; 84460; 84520; 84550; 85025; A9270; G0378

== ENCOUNTER 2017-12-21 22:08 | Emergency (ER) | payer BC ==
[2017-12-21 22:17] VITALS: BP 144/93
--- NOTE | 2017-12-22 00:40 | EDM.PDOC ---
ED HPI GENERAL MEDICAL PROBLEM - General Chief Complaint: Fever Stated Complaint: HI FEVER AFTER DELIVERY [id number] Time Seen by Provider: 12/21/17 22:35 Source of Information: Reports: Patient, Family, RN, RN Notes Reviewed History Limitations: Reports: No Limitations - History of Present Illness INITIAL COMMENTS - FREE TEXT/NARRATIVE: Pt presents to the ER with c/o fever at home, and swelling in legs. Patient states she delivered a baby on Sunday (12/18/17). She states she was pre- eclamptic and the baby was delivered 3 weeks premature. She states she has quite a bit of fluid build up from her toes into her thighs. Pt states she takes labetolol twice daily for her blood pressure. Pt states she saw Dr. Stanley in the clinic today and was prescribed Macrobid for a UTI and was told to take over the counter AZO. Patient states she began running a fever at home this evening. She states she took Tylenol prior to coming. Onset: Gradual - Related Data Allergies Allergy/AdvReac Type Severity Reaction Status Date / Time amoxicillin [Amoxicillin] Allergy Severe Difficulty Verified 12/21/17 22:17 Breathing azithromycin [From Zithromax] Allergy Intermediate Vomiting Verified 12/21/17 22 :17 Penicillins Allergy Vomiting Verified 12/21/17 22:17 Home Meds: Home Meds Vit37/Iron/Folic Acid [Prenata] 1 tab PO DAILY 06/16/17 [History] Labetalol HCl [Labetalol] 200 mg PO BID 11/26/17 [History] Nitrofurantoin Macrocrystal [Macrodantin] 1 tab PO BID 12/21/17 [History] Past Medical History - Past Health History Medical/Surgical History: Denies Medical/Surgical History HEENT History: Reports: Otitis Media Cardiovascular History: Reports: Other (See Below) Other Cardiovascular History: preeclampsia Respiratory History: Reports: Asthma Gastrointestinal History: Reports: None Genitourinary History: Reports: UTI, Recurrent 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: , Other (See Below) Other OB/BYN History: BV Musculoskeletal History: Reports: Fracture Neurological History: Reports: None Psychiatric History: Reports: Depression Endocrine/Metabolic History: Reports: None Hematologic History: Reports: None Immunologic History: Reports: None Oncologic (Cancer) History: Reports: None Dermatologic History: Reports: None - Infectious Disease History Infectious Disease History: Reports: None - Past Surgical History Head Surgeries/Procedures: Reports: None HEENT Surgical History: Reports: Adenoidectomy, Myringotomy w Tube(s), Tonsillectomy Cardiovascular Surgical History: Reports: None Respiratory Surgical History: Reports: None GI Surgical History: Reports: None Female Surgical History: Reports: None Endocrine Surgical History: Reports: None Neurological Surgical History: Reports: None Musculoskeletal Surgical History: Reports: Other (See Below) Other Musculoskeletal Surgeries/Procedures:: 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 Dermatological Surgical History: Reports: None Social & Family History - Family History Family Medical History: Noncontributory - Tobacco Use Smoking Status *Q: Unknown Ever Smoked Second Hand Smoke Exposure: No - Caffeine Use Caffeine Use: Reports: None Other Caffeine Use: orange juice - Alcohol Use Days Per Week of Alcohol Use: 0 - Recreational Drug Use Recreational Drug Use: No ED ROS GENERAL - Review of Systems Review Of Systems: ROS reveals no pertinent complaints other than HPI. ED EXAM, GENERAL - Physical Exam Exam: See Below Exam Limited By: No Limitations General Appearance: Alert, WD/WN, No Apparent Distress Eye Exam: Bilateral Eye: EOMI, Normal Inspection Ears: Normal External Exam, Hearing Grossly Normal Nose: Normal Inspection Throat/Mouth: Normal Inspection, Normal Voice, No Airway Compromise Head: Atraumatic, Normocephalic Neck: Normal Inspection, Supple, Non-Tender, Full Range of Motion Respiratory/Chest: No Respiratory Distress, Lungs Clear, Normal Breath Sounds, No Accessory Muscle Use, Chest Non-Tender Cardiovascular: Normal Peripheral Pulses, Regular Rate, Rhythm, No Gallop, No JVD, No Murmur, No Rub, Other (edema from toes all the way up to the thighs bilaterally, +3-4 pitting edema) Peripheral Pulses: 1+: Dorsalis Pedis (L), Dorsalis Pedis (R), 2+: Radial (L), Radial (R) GI/Abdominal: Normal Bowel Sounds, Soft, Non-Tender, No Organomegaly, No Distention, No Abnormal Bruit, No Mass, Pelvis Stable (Female) Exam: Deferred Rectal (Female) Exam: Deferred Back Exam: Normal Inspection, Full Range of Motion, NT Extremities: Pedal Edema, Limited Range of Motion Neurological: Alert, Oriented, CN II-XII Intact, Normal Cognition, Normal Gait, Normal Reflexes, No Motor/Sensory Deficits Psychiatric: Normal Affect, Normal Mood Skin Exam: Warm, Dry, Intact, Normal Color, No Rash Lymphatic: No Adenopathy Course - Vital Signs Last Recorded V/S: Last Vital Signs Temp 98.5 F 12/21/17 22:15 Pulse 77 12/21/17 22:15 Resp 16 12/21/17 22:15 BP 144/93 H 12/21/17 22:15 Pulse Ox 98 12/21/17 22:15 - Orders/Labs/Meds Orders: Active Orders 24 hr Category Date Time Status UA W/MICROSCOPIC [URIN] Stat Lab 12/21/17 22:49 Ordered PIH Panel [OM.PC] Stat Oth 12/21/17 22:35 Ordered Labs: Laboratory Tests 12/21/17 12/21/17 12/21/17 Range/Units 22:45 22:45 22:49 WBC 10.8 H (5.0-10.0) 10^3/uL RBC 2.42 L (4.2-5.4) 10^6/uL Hgb 7.8 L D (12.0-16.0) g/dL Hct 23.8 L (37.0-47.0) % MCV 98.3 D (80-100) fL MCH 32.2 (27.0-34.0) pg MCHC 32.8 L (33.0-35.0) g/dL Plt Count 240 (150-450) 10^3/uL Neut % (Auto) 71.2 (42.2-75.2) % Lymph % (Auto) 21.0 (20.5-50.1) % [place] % (Auto) 5.5 (2-8) % Eos % (Auto) 2.0 (1.0-3.0) % Baso % (Auto) 0.3 (0.0-1.0) % Add Manual Diff Yes Neutrophils % (Manual) 66 (42-75) % Band Neutrophils % 8 % Lymphocytes % (Manual) 14 L (20-50) % Atypical Lymphs % 0 % Monocytes % (Manual) 9 H (2-8) % Eosinophils % (Manual) 3 (1-3) % Basophils % (Manual) 0 Hypochromasia 1+ slight Anisocytosis 1+ slight BUN 10 (7-18) mg/dL Uric Acid 6.0 (2.6-7.2) mg/dL AST 139 H (10-42) IU/L ALT 88 H (10-60) IU/L Lactate Dehydrogenase 277 H (91-180) IU/L Urine Color [place] (YELLOW) Urine Appearance Turbid (CLEAR) Urine pH 8.5 (5.0-9.0) Ur Specific [place] 1.020 (1.005-1.030) Urine Protein >=300 H (NEGATIVE) Urine Glucose (UA) 250 H (NEGATIVE) Urine Ketones 15 H (NEGATIVE) Urine Occult Blood Large H (NEGATIVE) Urine Nitrite Positive H (NEGATIVE) Urine Bilirubin Small H (NEGATIVE) Urine Urobilinogen 1.0 (0.2-1.0) mg/dL Ur Leukocyte Esterase Large H (NEGATIVE) Urine RBC 50-75 H /HPF Urine WBC Packed H (0-5/HPF) /HPF Ur Epithelial Cells Many H /HPF Urine Bacteria Moderate H (0-FEW/HPF) /HPF - Re-Assessments/Exams Free Text/Narrative Re-Assessment/Exam: 12/22/17 00:42 Discussed Pt case with Dr. Ramirez. He recommends that we could do a short burst of Lasix to help the patient relieve some fluid. He states that her labs may not look great for a week or two post , but her body will begin diuresing and labs should return to normal. She is to follow up in the clinic next week. Departure - Departure Time of Disposition: 00:40 Disposition: Home, Self-Care 01 Condition: Fair Clinical Impression: Hypertension Qualifiers: Hypertension type: unspecified Qualified Code(s): I10 - Essential (primary) hypertension Edema Qualifiers: Edema type: unspecified Qualified Code(s): R60.9 - Edema, unspecified UTI (urinary tract infection) Qualifiers: Urinary tract infection type: acute cystitis Hematuria presence: with hematuria Qualified Code(s): N30.01 - Acute cystitis with hematuria - Discharge Information Instructions: Urinary Tract Infection, Adult, [id number], Hypertension Referrals: Ana Stanley MD [Primary Care Provider] - Forms: ED Department Discharge Additional Instructions: Continue taking your meds as prescribed RX: Lasix Follow up with your primary care facility next week May take Tylenol or Ibuprofen as directed for pain - My Orders Last 24 Hours: My Active Orders 12/21/17 22:35 PIH Panel [OM.PC] Stat 12/21/17 22:49 UA W/MICROSCOPIC [URIN] Stat - Assessment/Plan Last 24 Hours: My Active Orders 12/21/17 22:35 PIH Panel [OM.PC] Stat 12/21/17 22:49 UA W/MICROSCOPIC [URIN] Stat
== END 2017-12-22 00:50 | disposition home or self-care (01) ==
LOC: DL.ED 22:08
DX: O14.95 Unspecified pre-eclampsia, complicating the puerperium (principal); O86.22 Infection of bladder following delivery; Z88.1 Allergy status to other antibiotic agents; Z88.0 Allergy status to penicillin; Z79.899 Other long term (current) drug therapy
CPT/HCPCS: 36415; 81001; 83615; 84450; 84460; 84520; 84550; 85025; 99284

== ENCOUNTER 2019-05-10 22:06 | Emergency (ER) | payer BC ==
[2019-05-10 23:04] VITALS: BP 128/79
[2019-05-10] MEDS ORDERED: Cephalexin 250 MG Cap PO ONE (23:33)
--- NOTE | 2019-05-10 23:37 | EDM.PDOC ---
ED HPI GENERAL MEDICAL PROBLEM - General Chief Complaint: ENT Problem Stated Complaint: SORE THROAT, HEADACHE Time Seen by Provider: 05/10/19 23:34 Source of Information: Reports: Patient History Limitations: Reports: No Limitations - History of Present Illness INITIAL COMMENTS - FREE TEXT/NARRATIVE: c/o recurrent h/o sore throat. 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 Throat Pain Score (Numeric/FACES): 8 - Related Data Allergies Allergy/AdvReac Type Severity Reaction Status Date / Time amoxicillin [Amoxicillin] Allergy Severe Difficulty Verified 05/10/19 23:05 Breathing azithromycin [From Zithromax] Allergy Intermediate Vomiting Verified 12/21/17 22 :17 Penicillins Allergy Difficulty Verified 05/10/19 23:05 Breathing Home Meds: Home Meds Vit37/Iron/Folic Acid [Prenata] 1 tab PO DAILY 06/16/17 [History] Labetalol HCl [Labetalol] 200 mg PO BID 11/26/17 [History] Nitrofurantoin Macrocrystal [Macrodantin] 1 tab PO BID 12/21/17 [History] Past Medical History - Past Health History Medical/Surgical History: Denies Medical/Surgical History HEENT History: Reports: Otitis Media Cardiovascular History: Reports: Other (See Below) Other Cardiovascular History: preeclampsia Respiratory History: Reports: Asthma Gastrointestinal History: Reports: None Genitourinary History: Reports: UTI, Recurrent MEDICAL OFFICE SPECIALIST History: Reports: , Other (See Below) Other MEDICAL OFFICE SPECIALIST History: BV Musculoskeletal History: Reports: Fracture Neurological History: Reports: None Psychiatric History: Reports: Depression Endocrine/Metabolic History: Reports: None Hematologic History: Reports: None Immunologic History: Reports: None Oncologic (Cancer) History: Reports: None Dermatologic History: Reports: None - Infectious Disease History Infectious Disease History: Reports: None - Past Surgical History Head Surgeries/Procedures: Reports: None HEENT Surgical History: Reports: Adenoidectomy, Myringotomy w Tube(s), Tonsillectomy Cardiovascular Surgical History: Reports: None Respiratory Surgical History: Reports: None GI Surgical History: Reports: None Female Surgical History: Reports: None Endocrine Surgical History: Reports: None Neurological Surgical History: Reports: None Musculoskeletal Surgical History: Reports: Other (See Below) Other Musculoskeletal Surgeries/Procedures:: 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 Dermatological Surgical History: Reports: None Social & Family History - Family History Family Medical History: Noncontributory - Tobacco Use Smoking Status *Q: Unknown Ever Smoked - Caffeine Use Caffeine Use: Reports: Soda Other Caffeine Use: orange juice - Recreational Drug Use Recreational Drug Use: No ED ROS ENT - Review of Systems Review Of Systems: ROS reveals no pertinent complaints other than HPI. ED EXAM, ENT - Physical Exam Exam: See Below Exam Limited By: No Limitations General Appearance: Alert, WD/WN, Mild Distress, Other (discomfort) Ears: Hearing Grossly Normal Mouth/Throat: Pharyngeal Erythema, Tonsillar Erythema Head: Atraumatic Neck: Non-Tender, Full Range of Motion, Lymphadenopathy (L), Lymphadenopathy (R) Respiratory/Chest: No Respiratory Distress Cardiovascular: Regular Rate, Rhythm GI/Abdominal: Soft, Non-Tender Psychiatric: Normal Affect, Normal Mood Skin: Warm, Dry, Normal Color Lymphatic: Other (cervical) Course - Vital Signs Last Recorded V/S: Last Vital Signs Temp 36.3 C 05/10/19 23:02 Pulse 78 05/10/19 23:02 Resp 14 05/10/19 23:02 BP 128/79 05/10/19 23:02 Pulse Ox 100 05/10/19 23:02 - Orders/Labs/Meds Orders: Active Orders 24 hr Category Date Time Status CULTURE STREP A CONFIRMATION [RM] Stat Lab 05/10/19 22:54 Results STREP SCRN A RAPID W CULT CONF [RM] Stat Lab 05/10/19 22:54 Results cephALEXin [Keflex] Med 05/10/19 23:33 Once 250 mg PO ONETIME ONE - Re-Assessments/Exams Free Text/Narrative Re-Assessment/Exam: 05/10/19 23:35 results discussed with pt who states keflex works for her Departure - Departure Time of Disposition: 23:36 Disposition: Home, Self-Care 01 Condition: Good Clinical Impression: Tonsillopharyngitis - Discharge Information Instructions: Tonsillitis, Fela-[id number] Additional Instructions: 1) avoid solid and scratchy foods 2) try salt water gargle every hour till better 3) follow up at clinic rx given; keflex 250mg qid x 40 - My Orders Last 24 Hours: My Active Orders 05/10/19 22:54 CULTURE STREP A CONFIRMATION [RM] Stat STREP SCRN A RAPID W CULT CONF [RM] Stat 05/10/19 23:33 cephALEXin [Keflex] 250 mg PO ONETIME ONE - Assessment/Plan Last 24 Hours: My Active Orders 05/10/19 22:54 CULTURE STREP A CONFIRMATION [] Stat STREP SCRN A RAPID W CULT CONF [] Stat 05/10/19 23:33 cephALEXin [Keflex] 250 mg PO ONETIME ONE
== END 2019-05-10 23:42 | disposition home or self-care (01) ==
LOC: DL.ED 22:06
DX: J03.90 Acute tonsillitis, unspecified (principal); Z96.22 Myringotomy tube(s) status; Z98.890 Other specified postprocedural states; Z88.0 Allergy status to penicillin; Z88.1 Allergy status to other antibiotic agents; Z79.899 Other long term (current) drug therapy
CPT/HCPCS: 87081; 87430; 99282; A9270

== ENCOUNTER 2019-06-05 10:46 | Emergency (ER) | payer BC ==
[2019-06-05 10:58] VITALS: BP 129/81; PULSE 79
--- NOTE | 2019-06-05 11:10 | EDM.PDOC ---
ED HPI GENERAL MEDICAL PROBLEM - General Chief Complaint: Chest Pain Stated Complaint: CHEST PAINS/CLINIC TOLD HER TO COME HERE Time Seen by Provider: 06/05/19 11:10 Source of Information: Reports: Patient, RN, RN Notes Reviewed History Limitations: Reports: No Limitations - History of Present Illness INITIAL COMMENTS - FREE TEXT/NARRATIVE: Pt to ER with c/o mid sternal chest pain. States the pain was also in the right shoulder. Patient states she ate breakfast at 0900. Pain began at 0930. States she had eggs, toast, oranges for breakfast. Denies chances of , states she still has her gallbladder. Denies heart problems in herself, but strong family history of heart disease. States she found out Sunday that she has high cholesterol, was not started on meds, going to work on it with diet and exercise at this time and monitor. Patient denies N/V/D, fever or chills, recent illness, cough. Admits to SOB at times. States the chest pain comes and goes, and is 8/10 when present. Denies indigestion, acid reflux, or problems with anxiety. Onset: Today, Sudden Middle Chest Pain Score (Numeric/FACES): 8 - Related Data Allergies Allergy/AdvReac Type Severity Reaction Status Date / Time amoxicillin [Amoxicillin] Allergy Severe Difficulty Verified 06/05/19 10:58 Breathing azithromycin [From Zithromax] Allergy Intermediate Vomiting Verified 06/05/19 10 :58 Penicillins Allergy Difficulty Verified 06/05/19 10:58 Breathing Home Meds: Home Meds Norgestimate-Ethinyl Estradiol [Tri-Linyah Tablet] 1 tab PO DAILY 06/05/19 [ History] Sertraline HCl 75 mg PO DAILY 06/05/19 [History] Past Medical History - Past Health History Medical/Surgical History: Denies Medical/Surgical History HEENT History: Reports: Otitis Media Cardiovascular History: Reports: Other (See Below) Other Cardiovascular History: preeclampsia Respiratory History: Reports: Asthma Gastrointestinal History: Reports: None Genitourinary History: Reports: UTI, Recurrent 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: , Other (See Below) Other MARKETING AUTOMATION SPECIALIST History: BV Musculoskeletal History: Reports: Fracture Neurological History: Reports: None Psychiatric History: Reports: Depression Endocrine/Metabolic History: Reports: None Hematologic History: Reports: None Immunologic History: Reports: None Oncologic (Cancer) History: Reports: None Dermatologic History: Reports: None - Infectious Disease History Infectious Disease History: Reports: None - Past Surgical History Head Surgeries/Procedures: Reports: None HEENT Surgical History: Reports: Adenoidectomy, Myringotomy w Tube(s), Tonsillectomy Cardiovascular Surgical History: Reports: None Respiratory Surgical History: Reports: None GI Surgical History: Reports: None Female Surgical History: Reports: None Endocrine Surgical History: Reports: None Neurological Surgical History: Reports: None Musculoskeletal Surgical History: Reports: Other (See Below) Other Musculoskeletal Surgeries/Procedures:: 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 Dermatological Surgical History: Reports: None Social & Family History - Family History Family Medical History: Noncontributory - Tobacco Use Smoking Status *Q: Never Smoker Second Hand Smoke Exposure: No - Caffeine Use Caffeine Use: Reports: Soda Other Caffeine Use: orange juice - Recreational Drug Use Recreational Drug Use: No ED ROS GENERAL - Review of Systems Review Of Systems: ROS reveals no pertinent complaints other than HPI. ED EXAM, GENERAL - Physical Exam Exam: See Below Exam Limited By: No Limitations General Appearance: Alert, WD/WN, No Apparent Distress Eye Exam: Bilateral Eye: EOMI, Normal Inspection Ears: Normal External Exam, Hearing Grossly Normal Nose: Normal Inspection Throat/Mouth: Normal Inspection, Normal Voice, No Airway Compromise Head: Atraumatic, Normocephalic Neck: Normal Inspection, Supple, Non-Tender, Full Range of Motion Respiratory/Chest: No Respiratory Distress, Lungs Clear, Normal Breath Sounds, No Accessory Muscle Use, Chest Non-Tender Cardiovascular: Normal Peripheral Pulses, Regular Rate, Rhythm, No Edema, No Gallop, No JVD, No Murmur, No Rub GI/Abdominal: Normal Bowel Sounds, Soft, Non-Tender, No Organomegaly, No Distention, No Abnormal Bruit, No Mass (Female) Exam: Deferred Rectal (Female) Exam: Deferred Back Exam: Normal Inspection, Full Range of Motion, NT Extremities: Normal Inspection, Normal Range of Motion, Non-Tender, Normal Capillary Refill, No Pedal Edema Neurological: Alert, Oriented, CN II-XII Intact, Normal Cognition, Normal Gait, Normal Reflexes, No Motor/Sensory Deficits Psychiatric: Normal Affect, Normal Mood Skin Exam: Warm, Dry, Intact, Normal Color, No Rash Lymphatic: No Adenopathy Course - Vital Signs Last Recorded V/S: Last Vital Signs Temp 97.6 F 06/05/19 10:52 Pulse 79 06/05/19 10:52 Resp 16 06/05/19 10:52 BP 129/81 06/05/19 10:52 Pulse Ox 100 06/05/19 10:52 - Orders/Labs/Meds Orders: Active Orders 24 hr Category Date Time Status EKG Documentation Completion [RC] STAT Care 06/05/19 11:16 Active Chest 1V Frontal [CR] Stat Exams 06/05/19 11:16 Taken Labs: Laboratory Tests 06/05/19 06/05/19 06/05/19 Range/Units 11:22 11:22 11:23 WBC 6.9 (5.0-10.0) 10^3/uL RBC 4.69 (4.2-5.4) 10^6/uL Hgb 14.1 D (12.0-16.0) g/dL Hct 40.9 (37.0-47.0) % MCV 87.2 D (80-100) fL MCH 30.1 (27.0-34.0) pg MCHC 34.5 (33.0-35.0) g/dL Plt Count 309 (150-450) 10^3/uL Neut % (Auto) 63.1 (42.2-75.2) % Lymph % (Auto) 29.3 (20.5-50.1) % [place] % (Auto) 7.1 (2-8) % Eos % (Auto) 0.4 L (1.0-3.0) % Baso % (Auto) 0.1 (0.0-1.0) % Sodium (135-145) mmol/L Potassium (3.6-5.0) mmol/L Chloride (101-111) mmol/L Carbon Dioxide (21.0-31.0) mmol/L Anion Gap BUN (7-18) mg/dL Creatinine (0.6-1.3) mg/dL Est Cr Clr Drug Dosing mL/min Estimated GFR (MDRD) BUN/Creatinine Ratio Glucose (74-105) mg/dL Calcium (8.4-10.2) mg/dl Total Bilirubin (0.2-1.0) mg/dL AST (10-42) IU/L ALT (10-60) IU/L Alkaline Phosphatase (42-121) IU/L Troponin I (0.00-0.02) ng/ml Total Protein (6.7-8.2) g/dl Albumin (3.2-5.5) g/dl Globulin Albumin/Globulin Ratio Amylase (28-100) U/L Lipase (22-51) U/L Urine Color Dark yellow (YELLOW) Urine Appearance Slightly cloudy (CLEAR) Urine pH 6.0 (5.0-9.0) Ur Specific [place] >= 1.030 (1.005-1.030) Urine Protein Negative (NEGATIVE) Urine Glucose (UA) Negative (NEGATIVE) Urine Ketones Negative (NEGATIVE) Urine Occult Blood Trace-intact H (NEGATIVE) Urine Nitrite Negative (NEGATIVE) Urine Bilirubin Negative (NEGATIVE) Urine Urobilinogen 0.2 (0.2-1.0) mg/dL Ur Leukocyte Esterase Negative (NEGATIVE) Urine RBC 0-5 /HPF Urine WBC 0-5 (0-5/HPF) /HPF Ur Epithelial Cells Many H (NOT SEEN) /HPF Urine Bacteria Moderate H (0-FEW/HPF) /HPF Urine Mucus Many H (NOT SEEN) /LPF Urine HCG, Qual Negative 06/05/19 Range/Units 11:23 WBC (5.0-10.0) 10^3/uL RBC (4.2-5.4) 10^6/uL Hgb (12.0-16.0) g/dL Hct (37.0-47.0) % MCV (80-100) fL MCH (27.0-34.0) pg MCHC (33.0-35.0) g/dL Plt Count (150-450) 10^3/uL Neut % (Auto) (42.2-75.2) % Lymph % (Auto) (20.5-50.1) % [place] % (Auto) (2-8) % Eos % (Auto) (1.0-3.0) % Baso % (Auto) (0.0-1.0) % Sodium 137 (135-145) mmol/L Potassium 3.8 (3.6-5.0) mmol/L Chloride 101 (101-111) mmol/L Carbon Dioxide 25.0 (21.0-31.0) mmol/L Anion Gap 14.8 BUN 12 (7-18) mg/dL Creatinine 0.7 (0.6-1.3) mg/dL Est Cr Clr Drug Dosing 93.29 mL/min Estimated GFR (MDRD) > 60 BUN/Creatinine Ratio 17.14 Glucose 87 (74-105) mg/dL Calcium 9.2 (8.4-10.2) mg/dl Total Bilirubin 0.8 (0.2-1.0) mg/dL AST 23 (10-42) IU/L ALT 23 (10-60) IU/L Alkaline Phosphatase 49 (42-121) IU/L Troponin I < 0.02 (0.00-0.02) ng/ml Total Protein 7.1 (6.7-8.2) g/dl Albumin 4.5 (3.2-5.5) g/dl Globulin 2.6 Albumin/Globulin Ratio 1.73 Amylase 23 L (28-100) U/L Lipase 32 (22-51) U/L Urine Color (YELLOW) Urine Appearance (CLEAR) Urine pH (5.0-9.0) Ur Specific [place] (1.005-1.030) Urine Protein (NEGATIVE) Urine Glucose (UA) (NEGATIVE) Urine Ketones (NEGATIVE) Urine Occult Blood (NEGATIVE) Urine Nitrite (NEGATIVE) Urine Bilirubin (NEGATIVE) Urine Urobilinogen (0.2-1.0) mg/dL Ur Leukocyte Esterase (NEGATIVE) Urine RBC /HPF Urine WBC (0-5/HPF) /HPF Ur Epithelial Cells (NOT SEEN) /HPF Urine Bacteria (0-FEW/HPF) /HPF Urine Mucus (NOT SEEN) /LPF Urine HCG, Qual Meds: Medications Discontinued Medications Generic Name Dose Route Start Last Admin Trade Name Freq PRN Reason Stop Dose Admin Al Hydroxide/Mg Hydroxide 30 ml 06/05/19 11:59 06/05/19 12:07 Gi Cocktail PO 06/05/19 12:00 30 ml ONETIME ONE Administration - Radiology Interpretation Free Text/Narrative:: Chest xray; See rad report Departure - Departure Time of Disposition: 12:19 Disposition: Home, Self-Care 01 Reason for Transfer *Q: Other Condition: Good Clinical Impression: Acid reflux Qualifiers: Esophagitis presence: esophagitis presence not specified Qualified Code(s): K21.9 - Gastro-esophageal reflux disease without esophagitis Instructions: Indigestion, [id number], Nonspecific Chest Pain, [id number], Food Choices for Gastroesophageal Reflux Disease, Adult, [id number], Heartburn , Cohc-ft-[id number] Forms: ED Department Discharge Additional Instructions: Drink plenty of water May try TUMS or over the counter Pepcid Follow up with your primary care facility - My Orders Last 24 Hours: My Active Orders 06/05/19 11:16 EKG Documentation Completion [RC] STAT Chest 1V Frontal [CR] Stat - Assessment/Plan Last 24 Hours: My Active Orders 06/05/19 11:16 EKG Documentation Completion [RC] STAT Chest 1V Frontal [CR] Stat
[2019-06-05 11:56] LABS: ANION GAP 14.8; CHLORIDE,CL 101 mmol/L (101-111); SODIUM,NA 137 mmol/L (135-145)
[2019-06-05] MEDS ORDERED: GI Cocktail Oral Solution 30 ML PO ONE (11:59)
--- NOTE | 2019-06-05 12:44 | CR ---
EXAMINATION: Chest 1V Frontal SEX: Female AGE: 28 years CLINICAL HISTORY: Clinical history: 28-year-old female chest pain. INTERPRETATION: 1. Normal cardiac silhouette accentuated by less than optimal inspiratory effort. Left-sided aortic arch. 2. No cephalization of vascular flow, alveolar edema or dependent effusion. 3. No new lung mass, hilar lymphadenopathy or focal lobar pneumonia when compared to September 2016 exam. 4. No atelectasis/collapse. X line no pneumothorax. CONCLUSION: No acute cardiopulmonary abnormality.
== END 2019-06-05 12:25 | disposition home or self-care (01) ==
LOC: DL.ED 10:46
DX: K21.9 Gastro-esophageal reflux disease without esophagitis (principal); F32.9 Major depressive disorder, single episode, unspecified; J45.909 Unspecified asthma, uncomplicated; Z79.899 Other long term (current) drug therapy; Z88.0 Allergy status to penicillin; Z88.1 Allergy status to other antibiotic agents
CPT/HCPCS: 36415; 71045; 80053; 81001; 81025; 82150; 83690; 84484; 85025; 99285; A9270

== ENCOUNTER 2019-09-16 23:10 | Emergency (ER) | payer BC, MEDICAID ==
[2019-09-16] MEDS ORDERED: predniSONE 20 MG Tab PO ONE ×2 (23:11→23:54)
[2019-09-16] MEDS ORDERED: Albuterol/Ipratropium 3.0-0.5 MG/3 ML Neb Soln NEB ONE (23:20)
[2019-09-16 23:21] VITALS: BP 136/71; PULSE 104
--- NOTE | 2019-09-16 23:40 | EDM.PDOC ---
ED HPI GENERAL MEDICAL PROBLEM - General Chief Complaint: Respiratory Problem Stated Complaint: CHEST/HARD TO BREATH Time Seen by Provider: 09/16/19 23:15 Source of Information: Reports: Patient, RN Notes Reviewed History Limitations: Reports: No Limitations - History of Present Illness INITIAL COMMENTS - FREE TEXT/NARRATIVE: ED with c/o cough sore throat x 2 days, Son recently diagnosed with influenza B. Hx exercise induced asthma. Cough productive green phlegm. Middle Chest Pain Score (Numeric/FACES): 5 - Related Data Allergies Allergy/AdvReac Type Severity Reaction Status Date / Time amoxicillin [Amoxicillin] Allergy Severe Difficulty Verified 09/16/19 23:17 Breathing azithromycin [From Zithromax] Allergy Intermediate Vomiting Verified 09/16/19 23 :17 Penicillins Allergy Difficulty Verified 09/16/19 23:17 Breathing Home Meds: Home Meds Norgestimate-Ethinyl Estradiol [Tri-Linyah Tablet] 1 tab PO DAILY 06/05/19 [ History] Sertraline HCl 75 mg PO DAILY 06/05/19 [History] Past Medical History - Past Health History Medical/Surgical History: Denies Medical/Surgical History HEENT History: Reports: Otitis Media Cardiovascular History: Reports: Other (See Below) Other Cardiovascular History: preeclampsia Respiratory History: Reports: Asthma Gastrointestinal History: Reports: None Genitourinary History: Reports: UTI, Recurrent 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: , Other (See Below) 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: BV Musculoskeletal History: Reports: Fracture Neurological History: Reports: None Psychiatric History: Reports: Anxiety, Depression Endocrine/Metabolic History: Reports: None Hematologic History: Reports: None Immunologic History: Reports: None Oncologic (Cancer) History: Reports: None Dermatologic History: Reports: None - Infectious Disease History Infectious Disease History: Reports: None - Past Surgical History Head Surgeries/Procedures: Reports: None HEENT Surgical History: Reports: Adenoidectomy, Myringotomy w Tube(s), Tonsillectomy Cardiovascular Surgical History: Reports: None Respiratory Surgical History: Reports: None GI Surgical History: Reports: None Female Surgical History: Reports: None Endocrine Surgical History: Reports: None Neurological Surgical History: Reports: None Musculoskeletal Surgical History: Reports: Other (See Below) Other Musculoskeletal Surgeries/Procedures:: 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 Dermatological Surgical History: Reports: None Social & Family History - Family History Family Medical History: Noncontributory - Tobacco Use Smoking Status *Q: Unknown Ever Smoked Second Hand Smoke Exposure: No - Caffeine Use Caffeine Use: Reports: Coffee, Soda Other Caffeine Use: orange juice - Recreational Drug Use Recreational Drug Use: No ED ROS GENERAL - Review of Systems Review Of Systems: Comprehensive ROS is negative, except as noted in HPI. ED EXAM, GENERAL - Physical Exam Exam: See Below Exam Limited By: No Limitations General Appearance: Alert, No Apparent Distress Eye Exam: Bilateral Eye: EOMI Ears: Normal External Exam, Hearing Grossly Normal, Normal TMs Nose: Normal Inspection Throat/Mouth: Normal Inspection Head: Atraumatic, Normocephalic Neck: Normal Inspection Respiratory/Chest: No Respiratory Distress, Decreased Breath Sounds, Other ( bronchial cough). No: Rales, Rhonchi, Wheezing Cardiovascular: Normal Peripheral Pulses, Regular Rate, Rhythm GI/Abdominal: Normal Bowel Sounds Extremities: Normal Inspection Neurological: Alert, Oriented, Normal Cognition Psychiatric: Normal Affect, Normal Mood Skin Exam: Warm, Dry, Intact, Normal Color Course - Vital Signs Last Recorded V/S: Last Vital Signs Temp 96.9 F 09/16/19 23:20 Pulse 104 H 09/16/19 23:20 Resp 16 09/16/19 23:20 BP 136/71 09/16/19 23:20 Pulse Ox 99 09/16/19 23:20 - Orders/Labs/Meds Orders: Active Orders 24 hr Category Date Time Status RT Aerosol Therapy [RC] ASDIRECTED Care 09/16/19 23:20 Active Meds: Medications Discontinued Medications Generic Name Dose Route Start Last Admin Trade Name Rafael PRN Reason Stop Dose Admin Albuterol/Ipratropium 3 ml 09/16/19 23:20 09/16/19 23:26 Duoneb 3.0-0.5 Mg/3 Ml NEB 09/16/19 23:21 3 ml ONETIME ONE Administration Prednisone 40 mg 09/16/19 23:54 Prednisone PO 09/16/19 23:55 ONETIME ONE Departure - Departure Time of Disposition: 23:56 Disposition: Home, Self-Care 01 Condition: Good Clinical Impression: Bronchitis - Discharge Information *PRESCRIPTION DRUG MONITORING PROGRAM REVIEWED*: No *COPY OF PRESCRIPTION DRUG MONITORING REPORT IN PATIENT WALTER: No Instructions: Upper Respiratory Infection, Adult, [id number] Forms: ED Department Discharge Additional Instructions: albuterol inhaler 2 puffs every 4 hours as needed for cough/sheezing prednisone taper increase fluids robitussin per package label to loosen mucus alternate tylenol and ibuprofen every 4 hours as needed for fever/ discomfort humidifier follow up if symptoms worsen Sepsis Event Note - Evaluation Sepsis Screening Result: No Definite Risk - Focused Exam Vital Signs: Vital Signs Temp Pulse Resp BP Pulse Ox 09/16/19 23:20 96.9 F 104 H 16 136/71 99 Date Exam was Performed: 09/16/19 Time Exam was Performed: 23:56 - My Orders Last 24 Hours: My Active Orders 09/16/19 23:20 RT Aerosol Therapy [RC] ASDIRECTED - Assessment/Plan Last 24 Hours: My Active Orders 09/16/19 23:20 RT Aerosol Therapy [RC] ASDIRECTED
[2019-09-17] MEDS ORDERED: predniSONE 20 MG Tab ONE (00:03)
== END 2019-09-17 00:07 | disposition home or self-care (01) ==
LOC: DL.ED 23:10
DX: J40 Bronchitis, not specified as acute or chronic (principal); Z88.0 Allergy status to penicillin; Z88.1 Allergy status to other antibiotic agents
CPT/HCPCS: 87804; 94640; 99283; A9270; J7620-GY

== ENCOUNTER 2019-09-17 06:43 | Emergency (ER) | payer BC ==
[2019-09-17 06:56] VITALS: BP 113/67; PULSE 86
[2019-09-17] MEDS ORDERED: Tetracaine HCl/PF 0.5% 4 ML Bottle EYELF ONE (07:07)
[2019-09-17] MEDS ORDERED: Fluorescein 1 MG Ophth Strip EYELF ONE (07:07)
[2019-09-17] MEDS ORDERED: Gentamicin 0.3% Ophth Soln 5 ML Bottle EYELF ONE (07:09)
--- NOTE | 2019-09-17 07:25 | EDM.PDOC ---
ED HPI GENERAL MEDICAL PROBLEM - General Chief Complaint: ENT Problem Stated Complaint: CANNOT SEE OUT OF LEFT EYE Time Seen by Provider: 09/17/19 07:00 Source of Information: Reports: Patient, RN, RN Notes Reviewed History Limitations: Reports: No Limitations - History of Present Illness INITIAL COMMENTS - FREE TEXT/NARRATIVE: Pt presents to ER from home by POV with c/o waking with left eye redness and pain. Pt states she took her contact lens out last night and went to bed with the eye feeling normal. Denies decreased vision. Denies FB. Onset: Today Duration: Constant Location: Reports: Other (Left eye) Quality: Reports: Ache, Burning Severity: Moderate Improves with: Reports: None Worsens with: Reports: None Associated Symptoms: Reports: No Other Symptoms Left Eye Pain Score (Numeric/FACES): 10 - Related Data Allergies Allergy/AdvReac Type Severity Reaction Status Date / Time amoxicillin [Amoxicillin] Allergy Severe Difficulty Verified 09/17/19 06:57 Breathing azithromycin [From Zithromax] Allergy Intermediate Vomiting Verified 09/17/19 06 :57 Penicillins Allergy Difficulty Verified 09/17/19 06:57 Breathing Home Meds: Home Meds Norgestimate-Ethinyl Estradiol [Tri-Linyah Tablet] 1 tab PO DAILY 06/05/19 [ History] Sertraline HCl 75 mg PO DAILY 06/05/19 [History] Past Medical History - Past Health History Medical/Surgical History: Denies Medical/Surgical History HEENT History: Reports: Otitis Media Cardiovascular History: Reports: Other (See Below) Other Cardiovascular History: preeclampsia Respiratory History: Reports: Asthma Gastrointestinal History: Reports: None Genitourinary History: Reports: UTI, Recurrent 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: , Other (See Below) Other TERRAZZO FINISHER HELPER History: BV Musculoskeletal History: Reports: Fracture Neurological History: Reports: None Psychiatric History: Reports: Anxiety, Depression Endocrine/Metabolic History: Reports: None Hematologic History: Reports: None Immunologic History: Reports: None Oncologic (Cancer) History: Reports: None Dermatologic History: Reports: None - Infectious Disease History Infectious Disease History: Reports: None - Past Surgical History Head Surgeries/Procedures: Reports: None HEENT Surgical History: Reports: Adenoidectomy, Myringotomy w Tube(s), Tonsillectomy Cardiovascular Surgical History: Reports: None Respiratory Surgical History: Reports: None GI Surgical History: Reports: None Female Surgical History: Reports: None Endocrine Surgical History: Reports: None Neurological Surgical History: Reports: None Musculoskeletal Surgical History: Reports: Other (See Below) Other Musculoskeletal Surgeries/Procedures:: 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 Dermatological Surgical History: Reports: None Social & Family History - Family History Family Medical History: Noncontributory Endocrine/Metabolic: Reports: None - Tobacco Use Smoking Status *Q: Never Smoker Second Hand Smoke Exposure: No - Caffeine Use Caffeine Use: Reports: Coffee, Soda Other Caffeine Use: orange juice - Recreational Drug Use Recreational Drug Use: No - Living Situation & Occupation Living situation: Reports: with Family ED ROS GENERAL - Review of Systems Review Of Systems: Comprehensive ROS is negative, except as noted in HPI. ED EXAM GENERAL W FULL EYE - Physical Exam Exam: See Below Exam Limited By: No Limitations General Appearance: Alert, WD/WN, No Apparent Distress Eye Exam: Right Eye: Normal Inspection, Left Eye: Conjunctival Injection, Corneal Abrasion, Bilateral Eye: EOMI, PERRL Eyelids: Left: Lid Everted for Exam, Bilateral: Normal Appearance Conjunctiva & Sclera: Right: Normal Appearance, Left: Discharge (clear), Injected Cornea Exam: Right: Normal Appearance, Left: Corneal Abrasion, Examined with Flourescein Extraocular Movements: Bilateral: Intact Pupils: Normal Accommodation Pupillary Size: Bilateral: 3 mm Pupillary Reaction: Bilateral: Brisk Anterior Chamber: Left: Normal Appearance Nose: Normal Inspection Throat/Mouth: Normal Inspection Head: Atraumatic, Normocephalic Neck: Normal Inspection Respiratory/Chest: No Respiratory Distress Neurological: Alert, Oriented, CN II-XII Intact, No Motor/Sensory Deficits Psychiatric: Normal Mood Skin Exam: Warm, Dry, Intact, Normal Color, No Rash Course - Vital Signs Last Recorded V/S: Last Vital Signs Temp 98.6 F 09/17/19 06:51 Pulse 86 09/17/19 06:51 Resp 16 09/17/19 06:51 BP 113/67 09/17/19 06:51 Pulse Ox 100 09/17/19 06:51 - Orders/Labs/Meds Meds: Medications Discontinued Medications Generic Name Dose Route Start Last Admin Trade Name Freq PRN Reason Stop Dose Admin Fluorescein Sodium 1 mg 09/17/19 07:07 09/17/19 07:15 Ful-Jazlyn EYELF 09/17/19 07:08 1 mg ONETIME ONE Administration Gentamicin Sulfate 1 ml 09/17/19 07:09 09/17/19 07:15 Garamycin 0.3% Ophth Soln EYELF 09/17/19 07:10 1 drop NOW ONE Administration Tetracaine HCl 1 ml 09/17/19 07:07 09/17/19 07:14 Tetracaine 0.5% Steri-Unit Imelda EYELF 09/17/19 07:08 2 drop ASDIRECTED ONE Administration Departure - Departure Time of Disposition: 07:21 Disposition: Home, Self-Care 01 Condition: Good Clinical Impression: Corneal abrasion, left Qualifiers: Encounter type: initial encounter Qualified Code(s): S05.02XA - Injury of conjunctiva and corneal abrasion without foreign body, left eye, initial encounter - Discharge Information *PRESCRIPTION DRUG MONITORING PROGRAM REVIEWED*: Not Applicable *COPY OF PRESCRIPTION DRUG MONITORING REPORT IN PATIENT WALTER: Not Applicable Instructions: Corneal Abrasion, [id number] Forms: ED Department Discharge Additional Instructions: Gentamicin Ophthalmic Solution 0.3% One drop into left eye four times a day for five days. Tetracaine Ophthalmic Solution 0.5% One drop into left eye every 4 hours as needed for pain for up to 24 hours. Wear sunglasses, even while inside. Do not wear contacts for 1 week. Follow up with eye doctor in 2 to 3 days. Sepsis Event Note - Evaluation Sepsis Screening Result: No Definite Risk - Focused Exam Vital Signs: Vital Signs Temp Pulse Resp BP Pulse Ox 09/17/19 06:51 98.6 F 86 16 113/67 100 Date Exam was Performed: 09/17/19 Time Exam was Performed: 07:33
== END 2019-09-17 07:40 | disposition home or self-care (01) ==
LOC: DL.ED 06:43
DX: S05.02XA Injury of conjunctiva and corneal abrasion without foreign body, left eye, initial encounter (principal); Z88.1 Allergy status to other antibiotic agents; Z88.0 Allergy status to penicillin; X58.XXXA Exposure to other specified factors, initial encounter
CPT/HCPCS: 99283; A9270

== ENCOUNTER 2021-08-13 15:28 | Emergency (ER) | payer BC, OTHER ==
[2021-08-13] MEDS ORDERED: Albuterol 0.083% 2.5 MG/3 ML Neb Soln INH ONE (15:29)
[2021-08-13 16:24] VITALS: BP 137/74; PULSE 80
[2021-08-13 16:29] LABS: CORONAVIRUS COVID-19 NAA NEGATIVE (NEGATIVE)
[2021-08-13] MEDS ORDERED: methylPREDNISolone Sodium Succinate 125 MG/2 ML SDV IM ONE (19:25)
[2021-08-13] MEDS ORDERED: Albuterol/Ipratropium 3.0-0.5 MG/3 ML Neb Soln NEB ONE (19:25)
--- NOTE | 2021-08-13 19:27 | EDM.PDOC ---
ED HPI GENERAL MEDICAL PROBLEM - General Chief Complaint: General Stated Complaint: 96*0, HEAD ACHE, CHILLS, COUGHING Time Seen by Provider: 08/13/21 19:20 Source of Information: Reports: Patient History Limitations: Reports: No Limitations - History of Present Illness INITIAL COMMENTS - FREE TEXT/NARRATIVE: This 30 yo female patient reports to the ED with increased shortness of breath over the past 3 days. The patient reports she has a history of asthma and her boyfriend has COVID. The patient reports she has not been around her boyfriend since before his symptoms started. The patient reports she has been using her inhaler, but does not have any solution for her nebulizer. The patient also reports she has been having body aches. Duration: Day(s): (3-4), Constant Location: Reports: Chest Quality: Reports: Other Severity: Moderate Improves with: Reports: None Worsens with: Reports: None Context: Reports: Other Associated Symptoms: Reports: Chest Pain ("tightness"), Cough, Shortness of Breath Generalized Pain Score (Numeric/FACES): 5 - Related Data Allergies Allergy/AdvReac Type Severity Reaction Status Date / Time amoxicillin [Amoxicillin] Allergy Severe Difficulty Verified 08/13/21 16:20 Breathing azithromycin [From Zithromax] Allergy Intermediate Vomiting Verified 08/13/21 1 6:20 Penicillins Allergy Difficulty Verified 08/13/21 16:20 Breathing Home Meds: Home Meds Sertraline HCl 100 mg PO DAILY 06/05/19 [History] norgestimate-ethinyl estradioL [Tri-Linyah Tablet] 1 tab PO DAILY 06/05/19 [History] Cholecalciferol (Vitamin D3) [Vitamin D3] 1,000 unit PO DAILY 08/13/21 [History] Past Medical History - Past Health History Medical/Surgical History: Denies Medical/Surgical History HEENT History: Reports: Otitis Media Cardiovascular History: Reports: Other (See Below) Other Cardiovascular History: preeclampsia Respiratory History: Reports: Asthma Gastrointestinal History: Reports: None Genitourinary History: Reports: UTI, Recurrent 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: , Other (See Below) 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: BV Musculoskeletal History: Reports: Fracture Neurological History: Reports: None Psychiatric History: Reports: Anxiety, Depression Endocrine/Metabolic History: Reports: None Hematologic History: Reports: None Immunologic History: Reports: None Oncologic (Cancer) History: Reports: None Dermatologic History: Reports: None - Infectious Disease History Infectious Disease History: Reports: None - Past Surgical History Head Surgeries/Procedures: Reports: None HEENT Surgical History: Reports: Adenoidectomy, Myringotomy w Tube(s), Tonsillectomy Cardiovascular Surgical History: Reports: None Respiratory Surgical History: Reports: None Other Respiratory Surgeries/Procedures: RSV as a child GI Surgical History: Reports: None Female Surgical History: Reports: None Endocrine Surgical History: Reports: None Neurological Surgical History: Reports: None Musculoskeletal Surgical History: Reports: Other (See Below) Other Musculoskeletal Surgeries/Procedures:: 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 Dermatological Surgical History: Reports: None Social & Family History - Family History Family Medical History: No Pertinent Family History Endocrine/Metabolic: Reports: None - Tobacco Use Tobacco Use Status *Q: Never Tobacco User Second Hand Smoke Exposure: No - Caffeine Use Caffeine Use: Reports: Coffee, Energy Drinks, Soda Other Caffeine Use: orange juice - Recreational Drug Use Recreational Drug Use: No - Living Situation & Occupation Living situation: Reports: with Family ED ROS GENERAL - Review of Systems Review Of Systems: Comprehensive ROS is negative, except as noted in HPI. ED EXAM, GENERAL - Physical Exam Exam: See Below Exam Limited By: No Limitations General Appearance: Alert, WD/WN, Moderate Distress Eye Exam: Bilateral Eye: EOMI, Normal Inspection, PERRL Ears: Normal External Exam, Normal Canal, Hearing Grossly Normal, Normal TMs Nose: Normal Inspection, Normal Mucosa, No Blood Throat/Mouth: Normal Inspection, Normal Lips, Normal Teeth, Normal Gums, Normal Oropharynx, Normal Voice, No Airway Compromise Head: Atraumatic, Normocephalic Neck: Normal Inspection, Supple, Non-Tender, Full Range of Motion Respiratory/Chest: Decreased Breath Sounds (right lower lobe), Rhonchi (right lower lobe) Cardiovascular: Normal Peripheral Pulses, Regular Rate, Rhythm, No Edema, No Gallop, No JVD, No Murmur, No Rub GI/Abdominal: Normal Bowel Sounds, Soft, Non-Tender, No Organomegaly, No Distention, No Abnormal Bruit, No Mass (Female) Exam: Deferred Rectal (Female) Exam: Deferred Back Exam: Normal Inspection, Full Range of Motion, NT Extremities: Normal Inspection, Normal Range of Motion, Non-Tender, Normal Capillary Refill, No Pedal Edema Neurological: Alert, Oriented, CN II-XII Intact, Normal Cognition, Normal Gait, Normal Reflexes, No Motor/Sensory Deficits Psychiatric: Normal Affect, Normal Mood Skin Exam: Warm, Dry, Intact, Normal Color, No Rash Lymphatic: No Adenopathy Course - Vital Signs Last Recorded V/S: Last Vital Signs Temp 97.7 F 08/13/21 16:21 Pulse 80 08/13/21 16:21 Resp 20 08/13/21 16:21 BP 137/74 08/13/21 16:21 Pulse Ox 100 08/13/21 16:21 - Orders/Labs/Meds Orders: Active Orders 24 hr Category Date Time Status RT Aerosol Therapy [RC] ASDIRECTED Care 08/13/21 19:26 Active CULTURE BLOOD [BC] Stat Lab 08/13/21 19:30 Received Labs: Laboratory Tests 08/13/21 08/13/21 08/13/21 Range/Units 15:39 19:30 19:30 WBC 7.7 (5.0-10.0) 10^3/uL RBC 4.54 (4.2-5.4) 10^6/uL Hgb 13.9 (12.0-16.0) g/dL Hct 40.6 (37.0-47.0) % MCV 89.4 (80-100) fL MCH 30.6 (27.0-34.0) pg MCHC 34.2 (33.0-35.0) g/dL Plt Count 309 (150-450) 10^3/uL Neut % (Auto) 64.2 (42.2-75.2) % Lymph % (Auto) 29.0 (20.5-50.1) % [place] % (Auto) 6.3 (2-8) % Eos % (Auto) 0.4 L (1.0-3.0) % Baso % (Auto) 0.1 (0.0-1.0) % Sodium 139 (136-145) mmol/L Potassium 3.9 (3.5-5.1) mmol/L Chloride 104 (98-107) mmol/L Carbon Dioxide 26 (21-32) mmol/L Anion Gap 12.9 (7-13) mEq/L BUN 8 (7-18) mg/dL Creatinine 0.72 (0.55-1.02) mg/dL Est Cr Clr Drug Dosing 99.55 mL/min Estimated GFR (MDRD) > 60 BUN/Creatinine Ratio 11.1 (No establ ref range) Glucose 101 H (70-99) mg/dL Lactic Acid (0.4-2.0) mmol/L Calcium 8.9 (8.5-10.1) mg/dL Total Bilirubin 0.3 (0.2-1.0) mg/dL AST 13 L (15-37) U/L ALT 29 (14-59) U/L Alkaline Phosphatase 49 (46-116) U/L Total Protein 7.2 (6.4-8.2) g/dL Albumin 4.2 (3.4-5.0) g/dL Globulin 3.0 Albumin/Globulin Ratio 1.4 Influenza Type A RNA Negative (NEGATIVE) Influenza Type B RNA Negative (NEGATIVE) SARS-CoV-2 RNA (TIARA) Negative (NEGATIVE) 08/13/21 Range/Units 19:30 WBC (5.0-10.0) 10^3/uL RBC (4.2-5.4) 10^6/uL Hgb (12.0-16.0) g/dL Hct (37.0-47.0) % MCV (80-100) fL MCH (27.0-34.0) pg MCHC (33.0-35.0) g/dL Plt Count (150-450) 10^3/uL Neut % (Auto) (42.2-75.2) % Lymph % (Auto) (20.5-50.1) % [place] % (Auto) (2-8) % Eos % (Auto) (1.0-3.0) % Baso % (Auto) (0.0-1.0) % Sodium (136-145) mmol/L Potassium (3.5-5.1) mmol/L Chloride (98-107) mmol/L Carbon Dioxide (21-32) mmol/L Anion Gap (7-13) mEq/L BUN (7-18) mg/dL Creatinine (0.55-1.02) mg/dL Est Cr Clr Drug Dosing mL/min Estimated GFR (MDRD) BUN/Creatinine Ratio (No establ ref range) Glucose (70-99) mg/dL Lactic Acid 1.1 (0.4-2.0) mmol/L Calcium (8.5-10.1) mg/dL Total Bilirubin (0.2-1.0) mg/dL AST (15-37) U/L ALT (14-59) U/L Alkaline Phosphatase (46-116) U/L Total Protein (6.4-8.2) g/dL Albumin (3.4-5.0) g/dL Globulin Albumin/Globulin Ratio Influenza Type A RNA (NEGATIVE) Influenza Type B RNA (NEGATIVE) SARS-CoV-2 RNA (TIARA) (NEGATIVE) Meds: Medications Discontinued Medications Generic Name Dose Route Start Last Admin Trade Name Freq PRN Reason Stop Dose Admin Albuterol/Ipratropium 3 ml 08/13/21 19:25 08/13/21 19:35 Albuterol/Ipratropium 3.0-0.5 Mg/3 Ml Neb Soln NEB 08/13/21 19:26 3 ml ONETIME ONE Administration Methylprednisolone Sodium Succinate 125 mg 08/13/21 19:25 08/13/21 19:35 Methylprednisolone Sodium Succinate 125 Mg/2 Ml Sdv IM 08/13/21 19:26 125 mg ONETIME ONE Administration Departure - Departure Time of Disposition: 21:00 Disposition: Home, Self-Care 01 Condition: Fair Clinical Impression: Asthma exacerbation Qualifiers: Asthma severity: moderate Asthma persistence: persistent Qualified Code(s): J45.41 - Moderate persistent asthma with (acute) exacerbation - Discharge Information *PRESCRIPTION DRUG MONITORING PROGRAM REVIEWED*: Not Applicable *COPY OF PRESCRIPTION DRUG MONITORING REPORT IN PATIENT WALTER: Not Applicable Instructions: Asthma, Adult, [id number] Forms: ED Department Discharge Care Plan Goals: The patient was advised of the examination, lab and x-ray results during the visit. The patient was given a DuoNeb treatment and an injection of SoluMedrol while in the ED. The patient was discharged with Albuterol Neb Solution #2 to take 1 treatment every 6 hours as needed. The patient was also discharged with scripts for Albuterol Neb Solution #1 box to have 1 treatment every 6 hours as needed and Prednisone (20 mg) #10 to take 2 by mouth daily for 5 days. If the patient has any additional symptoms or concerns, the patient should either return to the emergency department or visit her primary care facility. Sepsis Event Note (ED) - Evaluation Sepsis Screening Result: No Definite Risk - Focused Exam Vital Signs: Vital Signs Temp Pulse Resp BP Pulse Ox 08/13/21 16:21 97.7 F 80 20 137/74 100 - My Orders Last 24 Hours: My Active Orders 08/13/21 19:26 RT Aerosol Therapy [RC] ASDIRECTED 08/13/21 19:30 CULTURE BLOOD [BC] Stat - Assessment/Plan Last 24 Hours: My Active Orders 08/13/21 19:26 RT Aerosol Therapy [RC] ASDIRECTED 08/13/21 19:30 CULTURE BLOOD [BC] Stat
[2021-08-13 20:03] LABS: ANION GAP 12.9 mEq/L (7-13); CHLORIDE,CL 104 mmol/L (98-107); SODIUM,NA 139 mmol/L (136-145)
--- NOTE | 2021-08-13 20:47 | CR ---
PROCEDURE INFORMATION: Exam: XR Chest Exam date and time: 08/13/2021 8:22 PM Age: 30 years old Clinical indication: Cough and shortness of breath and other: HX asthma; Additional info: Short of breath TECHNIQUE: Imaging protocol: XR of the chest. Views: 2 views. COMPARISON: CR Chest 1V Frontal 06/05/2019 11:44 AM FINDINGS: Lungs: Clear lungs. Pleural spaces: No pneumothorax. No sizable pleural effusion. Heart/Mediastinum: No cardiomegaly. Bones/joints: Unremarkable. IMPRESSION: Clear lungs.
[2021-08-13] MEDS ORDERED: Albuterol 0.083% 2.5 MG/3 ML Neb Soln ONE (21:06)
== END 2021-08-13 21:10 | disposition home or self-care (01) ==
LOC: DL.ED 15:28
DX: J45.41 Moderate persistent asthma with (acute) exacerbation (principal); Z88.0 Allergy status to penicillin; Z88.1 Allergy status to other antibiotic agents; Z20.822 Contact with and (suspected) exposure to COVID-19
CPT/HCPCS: 0240U; 36415; 71046; 80053; 83605; 85025; 87040; 94640; 96372; 99285; J2930; J7613-GY; J7620-GY

== ENCOUNTER 2021-11-13 18:52 | Emergency (ER) | payer OTHER ==
[2021-11-13 20:34] VITALS: BP 104/85; PULSE 68
[2021-11-13 20:41] LABS: CORONAVIRUS COVID-19 NAA NEGATIVE (NEGATIVE)
[2021-11-13] MEDS: Albuterol/Ipratropium 3.0-0.5 MG/3 ML Neb Soln NEB ONE (21:21)
[2021-11-13 21:53] LABS: CHLORIDE,CL 104 mmol/L (98-107); SODIUM,NA 140 mmol/L (136-145)
[2021-11-13] MEDS: methylPREDNISolone Sodium Succinate 125 MG/2 ML SDV IM ONE (22:29)
== END 2021-11-13 22:45 | disposition home or self-care (01) ==
LOC: DL.ED 18:52
DX: R05.9 Cough, unspecified (principal); J45.909 Unspecified asthma, uncomplicated; Z88.0 Allergy status to penicillin; Z88.1 Allergy status to other antibiotic agents; Z20.822 Contact with and (suspected) exposure to COVID-19
CPT/HCPCS: 0240U; 36415; 71045; 80053; 85025; 86140; 96372; 99284; J2930; J7620-GY

== ENCOUNTER 2023-06-24 11:44 | Emergency (ER) | payer BC, MEDICAID, OTHER ==
[2023-06-24] MEDS ORDERED: Sodium Chloride 0.9% 10 ML Syringe FLUSH PRN (11:57)
[2023-06-24] MEDS ORDERED: Ketorolac 30 MG/ML SDV IVPUSH ONE (12:03)
[2023-06-24] MEDS ORDERED: Ondansetron 4 MG/2 ML SDV IVPUSH ONE (12:04)
[2023-06-24 12:08] LABS: BASOPHILS PERCENT AUTO 0.2 % (0.0-1.0); HEMATOCRIT 39.6 % (37.0-47.0); HEMOGLOBIN 13.6 g/dL (12.0-16.0); LYMPHOCYTES PERCENT AUTO 30.6 % (20.5-50.1); MEAN CORPUSCULAR HGB CONC 34.3 g/dL (33.0-35.0); MEAN CORPUSCULAR VOLUME 87.4 fL (80-100); MONOCYTES PERCENT AUTO 6.9 % (2-8); NEUTROPHILS PERCENT AUTO 61.3 % (42.2-75.2); PLATELET COUNT,PLT 264 10^3/uL (150-450); RED BLOOD CELL COUNT 4.53 10^6/uL (4.2-5.4); WHITE BLOOD CELL COUNT,WBC 5.9 10^3/uL (5.0-10.0)
[2023-06-24 12:11] VITALS: BP 114/67; PULSE 66
[2023-06-24 12:21] LABS: APPEARANCE,URINE CLEAR (CLEAR); BILIRUBIN,URINE NEGATIVE (NEGATIVE); COLOR,URINE YELLOW (YELLOW); GLUCOSE,URINE NEGATIVE (NEGATIVE); KETONES,URINE NEGATIVE (NEGATIVE); LEUKOCYTE ESTERASE,URINE NEGATIVE (NEGATIVE); NITRITE,URINE NEGATIVE (NEGATIVE); OCCULT BLOOD,URINE NEGATIVE (NEGATIVE); PROTEIN,URINE NEGATIVE (NEGATIVE); UROBILINOGEN,URINE 0.2 mg/dL (0.2-1.0)
[2023-06-24 12:31] LABS: LACTIC ACID 1.6 mmol/L (0.4-2.0)
[2023-06-24 12:36] LABS: A/G RATIO 1.4; ALANINE AMINOTRANSFERASE,ALT 34 U/L (14-59); ALBUMIN 3.9 g/dL (3.4-5.0); ALKALINE PHOSPHATASE 69 U/L (46-116); AMYLASE 24 U/L (25-115); ANION GAP 11.5 mEq/L (7-13); ASPARTATE AMNIOTRANSFERASE,AST 14 U/L (15-37); BILIRUBIN TOTAL 0.7 mg/dL (0.2-1.0); BLOOD UREA NITROGEN,BUN 9 mg/dL (7-18); BUN/CREATININE RATIO 10.3 (No establ ref range); C-REACTIVE PROTEIN 0.06 ng/dL (<=0.30); CARBON DIOXIDE,CO2 27 mmol/L (21-32); CHLORIDE,CL 104 mmol/L (98-107); CREATININE 0.87 mg/dL (0.55-1.02); GLUCOSE RANDOM 130 mg/dL (70-99); LIPASE 29 U/L (16-77); MAGNESIUM 1.9 mg/dL (1.8-2.4); POTASSIUM,K 3.5 mmol/L (3.5-5.1); PROTEIN TOTAL,TP 6.7 g/dL (6.4-8.2); SODIUM,NA 139 mmol/L (136-145); TSH ULTRASENSITIVE 1.07 uIU/mL (0.36-3.74)
[2023-06-24 12:37] LABS: ESTIMATED GFR 91 mL/min (>=60); ETHANOL BLOOD MEDICAL < 3 mg/dL (0)
== END 2023-06-24 12:54 | disposition home or self-care (01) ==
LOC: DL.ED 11:44
DX: R10.84 Generalized abdominal pain (principal); Z86.16 Personal history of COVID-19; Z88.0 Allergy status to penicillin; Z88.1 Allergy status to other antibiotic agents; Z79.899 Other long term (current) drug therapy
CPT/HCPCS: 36415; 80053; 80307; 81003; 81025; 82150; 83605; 83690; 83735; 84443; 85025; 86140; 96374; 96375; 99283; 99284-25; J1885; J2405; J3490

== ENCOUNTER 2024-03-28 20:27 | Emergency (ER) | payer MEDICAID, OTHER ==
[2024-03-28] MEDS: Ketorolac 30 MG/ML SDV IVPUSH ONE (21:29)
[2024-03-28] MEDS: Sodium Chloride 0.9% 1,000 ML IV ONE (21:29)
[2024-03-28] MEDS: Sodium Chloride 0.9% 10 ML Syringe FLUSH PRN (22:37)
[2024-03-28] MEDS: Metoclopramide 10 MG/2 ML SDV IVPUSH ONE (22:37)
[2024-03-28] MEDS: diphenhydrAMINE 50 MG/ML SDV IVPUSH ONE (22:37)
[2024-03-28 22:55] VITALS: BP 113/70; PULSE 58
== END 2024-03-28 22:58 | disposition home or self-care (01) ==
LOC: DL.ED 20:27
DX: G43.909 Migraine, unspecified, not intractable, without status migrainosus (principal); J45.909 Unspecified asthma, uncomplicated; K21.9 Gastro-esophageal reflux disease without esophagitis; Z86.16 Personal history of COVID-19; Z88.8 Allergy status to other drugs, medicaments and biological substances; Z88.0 Allergy status to penicillin; Z88.1 Allergy status to other antibiotic agents
CPT/HCPCS: 93005; 96361; 96374; 96375; 99284; J1200; J1885; J2765; J7030; J3490

== ENCOUNTER 2024-08-25 18:39 | Emergency (ER) | payer OTHER ==
[2024-08-25] MEDS: Metoclopramide 10 MG/2 ML SDV IVPUSH ONE (20:07)
[2024-08-25] MEDS: Ketorolac 30 MG/ML SDV IVPUSH ONE (20:08)
[2024-08-25] MEDS: diphenhydrAMINE 50 MG/ML SDV IVPUSH ONE (20:10)
[2024-08-25] MEDS: Sodium Chloride 0.9% 10 ML Syringe FLUSH PRN (20:11)
[2024-08-25 20:15] VITALS: BP 112/55; PULSE 58
== END 2024-08-25 20:22 | disposition home or self-care (01) ==
LOC: DL.ED 18:39
DX: G43.109 Migraine with aura, not intractable, without status migrainosus (principal); J45.909 Unspecified asthma, uncomplicated; Z86.16 Personal history of COVID-19; Z88.0 Allergy status to penicillin; Z88.1 Allergy status to other antibiotic agents; Z79.51 Long term (current) use of inhaled steroids; Z79.899 Other long term (current) drug therapy
CPT/HCPCS: 96374; 96375; 99283; J1200; J1885; J2765

== ENCOUNTER 2024-09-14 23:05 | Emergency (ER) | payer OTHER ==
[2024-09-14 23:51] LABS: APPEARANCE,URINE CLOUDY (CLEAR); BILIRUBIN,URINE NEGATIVE (NEGATIVE); COLOR,URINE YELLOW (YELLOW); GLUCOSE,URINE NEGATIVE (NEGATIVE); KETONES,URINE TRACE (NEGATIVE); LEUKOCYTE ESTERASE,URINE NEGATIVE (NEGATIVE); NITRITE,URINE NEGATIVE (NEGATIVE); OCCULT BLOOD,URINE LARGE (NEGATIVE); PH,URINE 6.5 (5.0-9.0); PROTEIN,URINE 30 (NEGATIVE)
[2024-09-14 23:51] LABS: BASOPHILS PERCENT AUTO 0.1 % (0.0-1.0); EOSINOPHILS PERCENT AUTO 2.5 % (1.0-3.0); HEMATOCRIT 38.6 % (37.0-47.0); HEMOGLOBIN 13.5 g/dL (12.0-16.0); LYMPHOCYTES PERCENT AUTO 40.9 % (20.5-50.1); MEAN CORPUSCULAR HEMOGLOBIN 30.5 pg (27.0-34.0); MEAN CORPUSCULAR VOLUME 87.3 fL (80-100); MONOCYTES PERCENT AUTO 8.4 % (2-8); NEUTROPHILS PERCENT AUTO 48.1 % (42.2-75.2); PLATELET COUNT,PLT 311 10^3/uL (150-450); RED BLOOD CELL COUNT 4.42 10^6/uL (4.2-5.4); WHITE BLOOD CELL COUNT,WBC 7.2 10^3/uL (5.0-10.0)
[2024-09-15 00:02] LABS: AMORPHOUS SEDIMENT,URINE FEW /HPF (NOT SEEN); BACTERIA,URINE MODERATE /HPF (0-FEW/HPF); EPITHELIAL CELLS,URINE MANY /HPF (NOT SEEN); MUCUS,URINE MODERATE /LPF (NOT SEEN); RBC,URINE 0-5 /HPF (0-5)
[2024-09-15 00:09] LABS: A/G RATIO 1.4; ALANINE AMINOTRANSFERASE,ALT 31 U/L (14-59); ALKALINE PHOSPHATASE 75 U/L (46-116); ANION GAP 13.1 mEq/L (7-13); ASPARTATE AMNIOTRANSFERASE,AST 17 U/L (15-37); BILIRUBIN TOTAL 0.5 mg/dL (0.2-1.0); BLOOD UREA NITROGEN,BUN 9 mg/dL (7-18); BUN/CREATININE RATIO 11.1 (No establ ref range); CALCIUM 9.1 mg/dL (8.5-10.1); CARBON DIOXIDE,CO2 28 mmol/L (21-32); CHLORIDE,CL 106 mmol/L (98-107); CREATININE 0.81 mg/dL (0.55-1.02); ESTIMATED GFR 99 mL/min (>=60); GLUCOSE RANDOM 91 mg/dL (70-99); POTASSIUM,K 4.1 mmol/L (3.5-5.1); PROTEIN TOTAL,TP 6.9 g/dL (6.4-8.2); SODIUM,NA 143 mmol/L (136-145)
[2024-09-15] MEDS: Acetaminophen 325 MG Tab PO ONE (00:44)
[2024-09-15] MEDS: Iopamidol 612 MG/ML 100 ML Bottle IVPUSH ONE (00:48)
[2024-09-15] MEDS: Sodium Chloride 0.9% 1,000 ML IV ONE (01:12)
[2024-09-15] MEDS: Ketorolac 30 MG/ML SDV IVPUSH ONE (01:44)
[2024-09-15] MEDS: Ciprofloxacin 500 MG Tab PO ONE (02:24)
[2024-09-15 02:31] VITALS: BP 118/62; PULSE 70
== END 2024-09-15 02:29 | disposition home or self-care (01) ==
LOC: DL.ED 23:05
DX: N39.0 Urinary tract infection, site not specified (principal); I10 Essential (primary) hypertension; J45.909 Unspecified asthma, uncomplicated; Z86.16 Personal history of COVID-19; Z90.89 Acquired absence of other organs; Z88.0 Allergy status to penicillin; Z88.1 Allergy status to other antibiotic agents; Z79.51 Long term (current) use of inhaled steroids; Z79.899 Other long term (current) drug therapy
CPT/HCPCS: 36415; 74177; 80053; 81001; 81025; 85025; 96361; 96374; 99284; A9270; J1885; J7030; Q9967